=== PATIENT | female | born 1930 | race Caucasian/White ===

== ENCOUNTER 2017-05-05 14:22 | Inpatient (IN) | payer MEDICARE ==
[2017-05-05] MEDS ORDERED: NS 0.9% 1000 ML* 1,000 ML IV ONE (14:50)
[2017-05-05 16:11] LABS: ABS Basophils 0 10^3/ul (0-0.2); ABS Eosinophils 0.1 10^3/ul (0-0.6); ABS Lymphocytes 3.1 10^3/ul (1.0-4.8); ABS Monocytes 0.6 10^3/ul (0-0.8); ABS Nucleated RBC 0 10^3/ul; Eosinophil % 1.3 % (0-6); Hematocrit 32 % (35-47); Hemoglobin 10.8 g/dl (12.0-16.0); Mean Corpuscular HGB Conc 34 g/dl (31-36); Mean Corpuscular Hemoglobin 32 pg (27-31); Mean Corpuscular Volume 96 fL (80-97); Mean Platelet Volume 8 um3 (7.4-10.4); Nucleated Red Blood Cells % 0.1; Platelet Count 163 10^3/ul (150-450); Red Blood Count 3.33 10^6/ul (4.0-5.4); Red Cell Distribution Width 16 % (10.5-15); White Blood Count 8.9 10^3/ul (3.5-10.8)
[2017-05-05 16:23] LABS: EGFR Non-African American 59.5 (>60)
[2017-05-05 16:54] LABS: Urine Appearance Cloudy; Urine Blood Negative (Negative); Urine Color Yellow; Urine Ketones Negative (Negative); Urine Protein Negative (Negative); Urine Specific Gravity 1.006 (1.010-1.030); Urine Urobilinogen Negative (Negative)
--- NOTE | 2017-05-05 19:16 | RAD ---
Indication: Altered mental status. Comparison: No prior exams available on the [facility] for comparison. Technique: Noncontrast CT vertex of skull through foramen magnum. Report: Moderately severe prominence of the cerebral sulci and moderate prominence of the cerebellar fissures reflecting atrophy. Unremarkable ventricles and basal cisterns. Decreased density in the periventricular and subcortical white matter while non-specific is most likely due to chronic microangiopathy. Negative for willoughby matter white matter obscuration, intra or extra-axial hemorrhage, or mass effect. Unremarkable partially visualized orbital contents. No fracture or suspicious calvarial or skull base lesion evident. Indolent thickening of the inner table of the frontal bone noted. Clear visualized paranasal sinuses and mastoid air spaces. Unremarkable scalp. IMPRESSION: 1. No acute intracranial process evident. 2. Involutional change and stigmata of chronic small vessel ischemic disease.
[2017-05-05] MEDS ORDERED: Acetaminophen TAB* 325 MG PO PRN (19:19)
[2017-05-05] MEDS ORDERED: Ondansetron INJ* 2 MG/ML VIAL IV PRN (19:19)
[2017-05-05 19:46] LABS: ABS Basophils 0.1 10^3/ul (0-0.2); ABS Eosinophils 0.1 10^3/ul (0-0.6); ABS Monocytes 0.5 10^3/ul (0-0.8); ABS Neutrophils 3.9 10^3/ul (1.5-7.7); ABS Nucleated RBC 0 10^3/ul; Eosinophil % 1.2 % (0-6); Hematocrit 32 % (35-47); Hemoglobin 10.7 g/dl (12.0-16.0); Lymphocyte % 46.3 % (25-47); Mean Corpuscular HGB Conc 33 g/dl (31-36); Mean Corpuscular Hemoglobin 32 pg (27-31); Mean Corpuscular Volume 96 fL (80-97); Mean Platelet Volume 8 um3 (7.4-10.4); Nucleated Red Blood Cells % 0; Platelet Count 169 10^3/ul (150-450); Red Blood Count 3.34 10^6/ul (4.0-5.4); Red Cell Distribution Width 15 % (10.5-15); White Blood Count 8.6 10^3/ul (3.5-10.8)
--- NOTE | 2017-05-05 21:33 | ED ---
Holli Ramirez Gabriel, scribed for Adrian Barr MD on 05/05/17 at 1445 . GI/ HPI - HPI Summary HPI Summary: This patient is a 87 year old F BIBA to [facility] with a chief complaint of a possible UTI. Pt lives at home with her son and the visiting nurse reports that the patients urine was foul and dark. Pt seems to agitated and disowned her son in the ED. She seems confused and goes from being somewhat cooperative to not cooperative when asked questions about her condition. Pt asked the doctor to leave the room claiming he was not a real doctor and then became tearful. Hx of UTI and abx noncompliance. LEVEL 5 CAVEAT: HPI limited due to the patient being uncooperative. - History of Current Complaint Time Seen by Provider: 05/05/17 14:38 Stated Complaint: POSSIBLE UTI Hx Obtained From: Patient, Family/Manufacturing Design Engineer, EMS, Medical Records Hx From Patient Unobtainable Due To: Altered Mental Status Onset/Duration: Still Present Timing: Constant Severity: Moderate Current Severity: Moderate Pain Intensity: 0 Associated Signs and Symptoms: Positive: Negative - fever - Allergy/Home Medications Allergies/Adverse Reactions: Allergies Allergy/AdvReac Type Severity Reaction Status Date / Time No Known Allergies Allergy Verified 05/05/17 15:26 Home Medications: Home Medications Cholecalciferol TAB* [Vitamin D TAB*] 1,000 unit PO DAILY 05/05/17 [History Confirmed 05/05/17] Cyanocobalamin TAB* [Vitamin B12 TAB*] 500 mcg PO QAM 05/05/17 [History Confirmed 05/05/17] Escitalopram (NF) [Lexapro 5 mg (NF)] 5 mg PO QAM 05/05/17 [History Confirmed ] Levothyroxine TAB* [Synthroid TAB*] 100 mcg PO QAM 05/05/17 [History Confirmed 05/05/17] Mirtazapine TAB* [Remeron TAB*] 15 mg PO QPM 05/05/17 [History Confirmed ] Rivastigmine PATCH 4.6 MG(NF) [Exelon(NF)] 1 patch TRANSDERM DAILY 05/05/17 [ History Confirmed 05/05/17] Sulfamethox/Trimethoprim DS* [Bactrim DS 800/160 TAB*] 1 tab PO BID 05/05/17 [ History Confirmed 05/05/17] PMH/Surg Hx/FS Hx/Imm Hx History: Reports: Other Problems/Disorders - UTI Infectious Disease History: No Infectious Disease History: Denies: Traveled Outside the [place] in Last 30 Days - Social History Lives: With Family - Additional Comments History Additional Comments: LEVEL 5 CAVEAT: PMHx limited due to the patient being uncooperative. Review of Systems - ROS Summary Review of Systems Summary: LEVEL 5 CAVEAT: ROS limited due to the patient being uncooperative. Negative: Fever Negative: Slurred Speech All Other Systems Reviewed And Are Negative: No Physical Exam - Summary Physical Exam Summary: LEVEL 5 CAVEAT: PE limited due to the patient being uncooperative. Pt would not let any examination take place. Appearance: The patient is an elderly female. Skin: skin color reflects adequate perfusion. HEENT: The head is normocephalic and atraumatic. The conjunctivae are clear and without drainage. Nares are patent and without drainage. Mouth reveals moist mucous membranes. The external ears are intact. Neurological: Patient is alert and oriented. The patient has symmetrical motor strength in all four extremities. Cranial nerves are grossly intact. Psychiatric: The patient is confused and tearful Triage Information Reviewed: Yes Vital Signs On Initial Exam: Initial Vitals Temp Pulse Resp BP Pulse Ox 97.1 F 69 15 139/93 95 05/05/17 14:30 05/05/17 14:30 05/05/17 14:30 05/05/17 14:30 05/05/17 14:30 Vital Signs Reviewed: Yes Completion Of Physical Exam Limited Due To: Level 5 Diagnostics - Vital Signs Vital Signs Temp Pulse Resp BP Pulse Ox 05/05/17 14:30 97.1 F 69 15 139/93 95 - Laboratory Lab Results: Lab Results 05/05/17 05/05/17 05/05/17 Range/Units 15:33 15:59 15:59 WBC 8.9 (3.5-10.8) 10^3/ul RBC 3.33 L (4.0-5.4) 10^6/ul Hgb 10.8 L (12.0-16.0) g/dl Hct 32 L (35-47) % MCV 96 (80-97) fL MCH 32 H (27-31) pg MCHC 34 (31-36) g/dl RDW 16 H (10.5-15) % Plt Count 163 (150-450) 10^3/ul MPV 8 (7.4-10.4) um3 Neut % (Auto) 56.1 (38-83) % Lymph % (Auto) 35.0 (25-47) % Sully % (Auto) 7.1 H (0-7) % Eos % (Auto) 1.3 (0-6) % Baso % (Auto) 0.5 (0-2) % Absolute Neuts (auto) 5.0 (1.5-7.7) 10^3/ul Absolute Lymphs (auto) 3.1 (1.0-4.8) 10^3/ul Absolute Monos (auto) 0.6 (0-0.8) 10^3/ul Absolute Eos (auto) 0.1 (0-0.6) 10^3/ul Absolute Basos (auto) 0 (0-0.2) 10^3/ul Absolute Nucleated RBC 0 10^3/ul Nucleated RBC % 0.1 Sodium 141 (133-145) mmol/L Potassium 4.3 (3.5-5.0) mmol/L Chloride 109 (101-111) mmol/L Carbon Dioxide 28 (22-32) mmol/L Anion Gap 4 (2-11) mmol/L BUN 17 (6-24) mg/dL Creatinine 0.90 (0.51-0.95) mg/dL Est GFR ( Amer) 76.5 (>60) Est GFR (Non-Af Amer) 59.5 (>60) BUN/Creatinine Ratio 18.9 (8-20) Glucose 115 H (70-100) mg/dL Lactic Acid (0.5-2.0) mmol/L Calcium 9.2 (8.6-10.3) mg/dL Total Bilirubin 0.30 (0.2-1.0) mg/dL AST 15 (13-39) U/L ALT 5 L (7-52) U/L Alkaline Phosphatase 43 (34-104) U/L Ammonia (16-53) mol/L Troponin I 0.00 (<0.04) ng/mL Total Protein 6.6 (6.4-8.9) g/dL Albumin 3.4 (3.2-5.2) g/dL Globulin 3.2 (2-4) g/dL Albumin/Globulin Ratio 1.1 (1-3) Vitamin B12 457 (180-914) pg/mL TSH 0.03 L (0.34-5.60) mcIU/mL Free T4 1.41 H (0.61-1.12) ng/dL Thyroxine (T4) 9.68 (6.09-12.23) mcg/mL Free T3 2.80 (2.5-3.9) pg/mL Total T3 0.71 L (0.87-1.78) ng/mL Urine Color Yellow Urine Appearance Cloudy Urine pH 7.0 (5-9) Ur Specific [place] 1.006 L (1.010-1.030) Urine Protein Negative (Negative) Urine Ketones Negative (Negative) Urine Blood Negative (Negative) Urine Nitrate Negative (Negative) Urine Bilirubin Negative (Negative) Urine Urobilinogen Negative (Negative) Ur Leukocyte Esterase Negative (Negative) Urine Glucose Negative (Negative) 05/05/17 05/05/17 05/05/17 Range/Units 15:59 19:37 19:37 WBC 8.6 (3.5-10.8) 10^3/ul RBC 3.34 L (4.0-5.4) 10^6/ul Hgb 10.7 L (12.0-16.0) g/dl Hct 32 L (35-47) % MCV 96 (80-97) fL MCH 32 H (27-31) pg MCHC 33 (31-36) g/dl RDW 15 (10.5-15) % Plt Count 169 (150-450) 10^3/ul MPV 8 (7.4-10.4) um3 Neut % (Auto) 45.7 (38-83) % Lymph % (Auto) 46.3 (25-47) % Sully % (Auto) 6.1 (0-7) % Eos % (Auto) 1.2 (0-6) % Baso % (Auto) 0.7 (0-2) % Absolute Neuts (auto) 3.9 (1.5-7.7) 10^3/ul Absolute Lymphs (auto) 4.0 (1.0-4.8) 10^3/ul Absolute Monos (auto) 0.5 (0-0.8) 10^3/ul Absolute Eos (auto) 0.1 (0-0.6) 10^3/ul Absolute Basos (auto) 0.1 (0-0.2) 10^3/ul Absolute Nucleated RBC 0 10^3/ul Nucleated RBC % 0 Sodium (133-145) mmol/L Potassium (3.5-5.0) mmol/L Chloride (101-111) mmol/L Carbon Dioxide (22-32) mmol/L Anion Gap (2-11) mmol/L BUN 17 (6-24) mg/dL Creatinine (0.51-0.95) mg/dL Est GFR ( Amer) (>60) Est GFR (Non-Af Amer) (>60) BUN/Creatinine Ratio (8-20) Glucose (70-100) mg/dL Lactic Acid 1.7 (0.5-2.0) mmol/L Calcium (8.6-10.3) mg/dL Total Bilirubin (0.2-1.0) mg/dL AST (13-39) U/L ALT (7-52) U/L Alkaline Phosphatase (34-104) U/L Ammonia (16-53) mol/L Troponin I (<0.04) ng/mL Total Protein (6.4-8.9) g/dL Albumin (3.2-5.2) g/dL Globulin (2-4) g/dL Albumin/Globulin Ratio (1-3) Vitamin B12 (180-914) pg/mL TSH (0.34-5.60) mcIU/mL Free T4 (0.61-1.12) ng/dL Thyroxine (T4) (6.09-12.23) mcg/mL Free T3 (2.5-3.9) pg/mL Total T3 (0.87-1.78) ng/mL Urine Color Urine Appearance Urine pH (5-9) Ur Specific [place] (1.010-1.030) Urine Protein (Negative) Urine Ketones (Negative) Urine Blood (Negative) Urine Nitrate (Negative) Urine Bilirubin (Negative) Urine Urobilinogen (Negative) Ur Leukocyte Esterase (Negative) Urine Glucose (Negative) 05/05/17 Range/Units 19:37 WBC (3.5-10.8) 10^3/ul RBC (4.0-5.4) 10^6/ul Hgb (12.0-16.0) g/dl Hct (35-47) % MCV (80-97) fL MCH (27-31) pg MCHC (31-36) g/dl RDW (10.5-15) % Plt Count (150-450) 10^3/ul MPV (7.4-10.4) um3 Neut % (Auto) (38-83) % Lymph % (Auto) (25-47) % Sully % (Auto) (0-7) % Eos % (Auto) (0-6) % Baso % (Auto) (0-2) % Absolute Neuts (auto) (1.5-7.7) 10^3/ul Absolute Lymphs (auto) (1.0-4.8) 10^3/ul Absolute Monos (auto) (0-0.8) 10^3/ul Absolute Eos (auto) (0-0.6) 10^3/ul Absolute Basos (auto) (0-0.2) 10^3/ul Absolute Nucleated RBC 10^3/ul Nucleated RBC % Sodium (133-145) mmol/L Potassium (3.5-5.0) mmol/L Chloride (101-111) mmol/L Carbon Dioxide (22-32) mmol/L Anion Gap (2-11) mmol/L BUN (6-24) mg/dL Creatinine (0.51-0.95) mg/dL Est GFR ( Amer) (>60) Est GFR (Non-Af Amer) (>60) BUN/Creatinine Ratio (8-20) Glucose (70-100) mg/dL Lactic Acid (0.5-2.0) mmol/L Calcium (8.6-10.3) mg/dL Total Bilirubin (0.2-1.0) mg/dL AST (13-39) U/L ALT (7-52) U/L Alkaline Phosphatase (34-104) U/L Ammonia 38 (16-53) mol/L Troponin I (<0.04) ng/mL Total Protein (6.4-8.9) g/dL Albumin (3.2-5.2) g/dL Globulin (2-4) g/dL Albumin/Globulin Ratio (1-3) Vitamin B12 (180-914) pg/mL TSH (0.34-5.60) mcIU/mL Free T4 (0.61-1.12) ng/dL Thyroxine (T4) (6.09-12.23) mcg/mL Free T3 (2.5-3.9) pg/mL Total T3 (0.87-1.78) ng/mL Urine Color Urine Appearance Urine pH (5-9) Ur Specific [place] (1.010-1.030) Urine Protein (Negative) Urine Ketones (Negative) Urine Blood (Negative) Urine Nitrate (Negative) Urine Bilirubin (Negative) Urine Urobilinogen (Negative) Ur Leukocyte Esterase (Negative) Urine Glucose (Negative) Result Diagrams: 05/05/17 19:37 05/05/17 19:37 Lab Statement: Any lab studies that have been ordered have been reviewed, and results considered in the medical decision making process. - CT CT Head CT Interpretation Completed By: Radiologist - 1. No acute intracranial process evident. 2. Involutional change and stigmata of chronic small vessel ischemic disease. ED physician has reviewed this radiology report. - EKG 1723 Cardiac Rate: NL EKG Rhythm: Sinus Rhythm - at 74 BPM EKG Interpretation: baseline wander in inferior leads GIGU Course/Dx - Course Course Of Treatment: Ms. Mae presents with confusion and agitation. According to the son this is new and, therefore, represents an acute delirium. I could not find the source and have asked the hospitalist service to evaluate her. - Diagnoses Provider Diagnoses: Acute delirium - Physician Notifications Discussed Care Of Patient With: Mike Guy Time Discussed With Above Provider: 20:27 Instructed by Provider To: Admit As Inpatient Discharge - Discharge Plan Condition: Fair Disposition: ADMITTED TO [facility] The documentation as recorded by the Holli solomon Gabriel accurately reflects the service I personally performed and the decisions made by me, Adrian Barr MD.
[2017-05-05] MEDS: Heparin VIAL(*) 5000 UNITS/ML VIAL (FIVE THOUSAND) SUBCUT SCH (22:47)
--- NOTE | 2017-05-05 23:19 | HP ---
CC: Dr. Davis; Dr. Aldridge * HISTORY AND PHYSICAL: DATE OF ADMISSION: 05/05/17 PRIMARY CARE PROVIDER: Dr. Davis. ATTENDING PHYSICIAN WHILE IN THE HOSPITAL: Mike Guy MD * (report dictated by Nii Muhammad NP). CHIEF COMPLAINT: Altered mental status. HISTORY OF PRESENT ILLNESS: I would like to preface the report by saying that the patient has a moderate amount of underlying dementia. She really does not know why she is here today. She does not realize that she, according to the son , had been having hallucinations and was paranoid and not acting at her baseline. The family says that over the last couple of days, there has been issues with the patient being aggressive towards her son particularly at night. They do note that she gets more confused at night. There has been no reports of fevers or chills. There was concern for possible UTI so that is why they came into the hospital. She was evaluated. When I am asking her if she is having any complaints, she denies chest pain, denies having any cough, fevers, no vomiting or diarrhea. Family has not noticed any of these symptoms. They do note that she has been cheeking some of her pills at times. She has not been swallowing her hypothyroid medications and has not taking her B12 medication. There was concern though because she was a little more confused than her baseline, she was more paranoid, and the family brought her into the hospital today to be evaluated. PAST MEDICAL HISTORY: Significant for: 1. Hypothyroidism. 2. Dementia. 3. Breast cancer. PAST SURGICAL HISTORY: She had a laparoscopic cholecystectomy. HOME MEDICATIONS: Include: 1. Bactrim 1 tablet p.o. b.i.d. 2. B12 500 mcg daily. 3. Vitamin D 1000 units daily. 4. Exelon 1 patch transdermally daily. 5. Remeron 15 mg p.o. q.p.m. 6. Synthroid 100 mcg p.o. daily. 7. Lexapro 5 mg p.o. daily. ALLERGIES TO MEDICATIONS: Include no known drug allergies. FAMILY HISTORY: Her father of [place]. She thinks her mother is still alive in [place], but is not the case. SOCIAL HISTORY: She is a former smoker. She lives with her son, Leonor now. REVIEW OF SYSTEMS: There is no documented fever. Denied having any significant weight change. There was no double vision. There is no ear discharge. Denied having any rhinorrhea. There is no sore throat. No thyroid enlargement. Denied having any chest pain. There is orthopnea. There is no nocturnal dyspnea. There was no abdominal pain. There is no nausea, no vomiting, no dysuria, no frequency, no seizure, no loss of consciousness, no pruritus, and no skin ulcerations. Review of 14 systems completed, all others negative. PHYSICAL EXAMINATION GENERAL: Ms. Mae is an 87-year-old female patient. She is sitting in the ED stretcher. She does not appear to be in any acute distress. VITAL SIGNS: Blood pressure 153/75, pulse 67, respirations 16, O2 saturation 95 %, temperature 97.1. HEENT: Head, atraumatic, normocephalic. Eyes: EOMs intact. Sclerae anicteric and not pale. Throat: Oral mucosa appears to be moist. No oropharyngeal erythema. NECK: Supple. LUNGS: Clear to auscultation bilaterally. No wheezes, rales or rhonchi. HEART: Sounds S1, S2. Regular rate and rhythm. No murmurs, rubs or gallops. ABDOMEN: Soft, flat, nontender. Bowel sounds present. EXTREMITIES: Pulses were 2+ throughout. She had no peripheral edema noted. She is moving all 4 extremities with 5/5 strength. NEUROLOGIC: She is awake to herself only. She is confused to time and place. Speech is clear. Tongue is midline. No gross focal deficits. SKIN: Grossly intact. DIAGNOSTIC STUDIES/ LABORATORY DATA: WBC 8.6, RBC of 3.34, hemoglobin 10.7, hematocrit 32, platelet count 169. Sodium 141, potassium 4.3, chloride of 109, bicarbonate 28, BUN 17, creatinine 0.90. Glucose 115, lactic 1.7, calcium 9.2, total bilirubin 0.3. AST 15, ALT 5, alk phos 43, troponin 0. Albumin of 3.4. Urine was obtained and appeared to be negative. She had a CT of the brain, showed no acute intracranial process evident, involutional change, stigmata of chronic small vessel ischemic change. She had an EKG obtained today, which showed normal sinus rhythm, rate of 74. No ST elevations or T wave inversions. No previous EKG for comparison. Old medical records were reviewed. ASSESSMENT AND PLAN: Ms. Mae is an 87-year-old female patient coming into ED today with complaints of altered mental status, worsening confusion. We were asked to evaluate for admission. She will be admitted under observation status for: 1. Dementia with acute delirium. At this point, I do not see any precipitating factor. I do note her TSH is low. I have held her Synthroid at this point. We will check a free T3, free T4. I am going to get Neurology involved. I am looking for any other precipitating factors. I am checking ammonia level. I am also checking her B12 level. We will get neuro checks every 4 hours and we will continue to follow her, but this could be progression of her disease. We will continue her meds as prescribed and we will continue to monitor. 2. Hypothyroidism. Again, her TSH is low. I am holding her Synthroid. In dementia patient, this could be a culprit as to why she has been a little more paranoid and having hallucinations. We will monitor. 3. History of breast cancer. Follow with her primary. 4. DVT prophylaxis. She will be placed on heparin subcu. 5. Code status. Full code. Currently, the son will be in discussion with other children to discuss the code status. The son would like to speak to his sisters. 6. Fluid, electrolytes, and nutrition. She can have a regular diet. TIME SPENT: Time spent on admission was 60 minutes, greater than half the time was spent [id number] with the patient obtaining my history and physical, other half of the time spent going over the plan of care with the patient and implementing plan of care. I did discuss plan of care with my attending, Dr. Guy, he is in agreement. NII MUHAMMAD, BOUCHRA [id number]/CPS #: [id number] LEVI
[2017-05-06] MEDS: Heparin VIAL(*) 5000 UNITS/ML VIAL (FIVE THOUSAND) SUBCUT SCH ×3 (05:38→21:37)
[2017-05-06 06:23] LABS: ABS Basophils 0 10^3/ul (0-0.2); ABS Eosinophils 0.1 10^3/ul (0-0.6); ABS Lymphocytes 4.4 10^3/ul (1.0-4.8); ABS Monocytes 0.5 10^3/ul (0-0.8); ABS Neutrophils 2.9 10^3/ul (1.5-7.7); ABS Nucleated RBC 0 10^3/ul; Eosinophil % 1.9 % (0-6); Hematocrit 30 % (35-47); Hemoglobin 10.4 g/dl (12.0-16.0); Lymphocyte % 54.7 % (25-47); Mean Corpuscular HGB Conc 34 g/dl (31-36); Mean Corpuscular Hemoglobin 33 pg (27-31); Mean Corpuscular Volume 97 fL (80-97); Mean Platelet Volume 9 um3 (7.4-10.4); Nucleated Red Blood Cells % 0.1; Platelet Count 150 10^3/ul (150-450); Red Blood Count 3.14 10^6/ul (4.0-5.4); Red Cell Distribution Width 16 % (10.5-15)
[2017-05-06 07:00] LABS: EGFR Non-African American 53.9 (>60)
[2017-05-06] MEDS: Cyanocobalamin TAB* 500 MCG PO SCH (08:40)
[2017-05-06] MEDS: Citalopram TAB* 10 MG PO SCH (08:40)
[2017-05-06] MEDS ORDERED: Levothyroxine TAB* 100 MCG TAB PO SCH (09:00)
[2017-05-06] MEDS ORDERED: Rivastigmine PATCH 4.6 MG(NF) PATCH TRANSDERM SCH (09:00)
[2017-05-06] MEDS: OLANzapine TAB* 2.5 MG PO SCH ×3 (10:05→21:37)
--- NOTE | 2017-05-06 11:01 | PN ---
Subjective Date of Service: 05/06/17 Interval History: Patient seen and examined. Sitting in hallway with 1:1, bizarre behavior noted, very verbal, but making no sense most of the time. Difficut to redirect. No complaints, but unable to get complete ROS 2/2 condition. Objective Active Medications: Acetaminophen (Tylenol Tab*) 650 mg PO Q4H PRN PRN Reason: FEVER/PAIN Citalopram Hydrobromide (Celexa Tab*) 10 mg PO QAM [facility] PRN Reason: Protocol Last Admin: 05/06/17 08:40 Dose: 10 mg Cyanocobalamin (Vitamin B12 Tab*) 500 mcg PO QAM [facility] Last Admin: 05/06/17 08:40 Dose: 500 mcg Heparin Sodium (Porcine) (Heparin Vial(*)) 5,000 units SUBCUT Q8HR [facility] Last Admin: 05/06/17 05:38 Dose: 5,000 units Mirtazapine (Remeron Tab*) 15 mg PO QPM [facility] Olanzapine (Zyprexa Tab*) 2.5 mg PO Q6H [facility] Last Admin: 05/06/17 10:05 Dose: 2.5 mg Trazodone HCl (Desyrel Tab*) 50 mg PO BEDTIME [facility] Vital Signs - 8 hr 05/06/17 05/06/17 05/06/17 03:03 06:33 07:32 Temperature 98.0 F Pulse Rate 79 89 Respiratory 16 16 Rate Blood Pressure 130/64 157/55 (mmHg) O2 Sat by Pulse 99 99 92 Oximetry Oxygen Devices in Use Now: None Appearance: Alert, agitated at times, confused Ears/Nose/Mouth/Throat: NL Teeth, Lips, Gums, Mucous Membranes Moist Neck: Trachea Midline Respiratory: Symmetrical Chest Expansion and Respiratory Effort, Clear to Auscultation Cardiovascular: NL Sounds; No Murmurs; No JVD, RRR, No Edema Neurological: NL Gait, - - alert, confused Nutrition: Taking PO's Result Diagrams: 05/06/17 05:48 05/06/17 05:48 Additional Lab and Data: Lab Results 05/05/17 05/05/17 05/05/17 Range/Units 15:33 15:59 15:59 WBC 8.9 (3.5-10.8) 10^3/ul RBC 3.33 L (4.0-5.4) 10^6/ul Hgb 10.8 L (12.0-16.0) g/dl Hct 32 L (35-47) % MCV 96 (80-97) fL MCH 32 H (27-31) pg MCHC 34 (31-36) g/dl RDW 16 H (10.5-15) % Plt Count 163 (150-450) 10^3/ul MPV 8 (7.4-10.4) um3 Neut % (Auto) 56.1 (38-83) % Lymph % (Auto) 35.0 (25-47) % Gaston % (Auto) 7.1 H (0-7) % Eos % (Auto) 1.3 (0-6) % Baso % (Auto) 0.5 (0-2) % Absolute Neuts (auto) 5.0 (1.5-7.7) 10^3/ul Absolute Lymphs (auto) 3.1 (1.0-4.8) 10^3/ul Absolute Monos (auto) 0.6 (0-0.8) 10^3/ul Absolute Eos (auto) 0.1 (0-0.6) 10^3/ul Absolute Basos (auto) 0 (0-0.2) 10^3/ul Absolute Nucleated RBC 0 10^3/ul Nucleated RBC % 0.1 Sodium 141 (133-145) mmol/L Potassium 4.3 (3.5-5.0) mmol/L Chloride 109 (101-111) mmol/L Carbon Dioxide 28 (22-32) mmol/L Anion Gap 4 (2-11) mmol/L BUN 17 (6-24) mg/dL Creatinine 0.90 (0.51-0.95) mg/dL Est GFR ( Amer) 76.5 (>60) Est GFR (Non-Af Amer) 59.5 (>60) BUN/Creatinine Ratio 18.9 (8-20) Glucose 115 H (70-100) mg/dL Lactic Acid (0.5-2.0) mmol/L Calcium 9.2 (8.6-10.3) mg/dL Total Bilirubin 0.30 (0.2-1.0) mg/dL AST 15 (13-39) U/L ALT 5 L (7-52) U/L Alkaline Phosphatase 43 (34-104) U/L Ammonia (16-53) mol/L Troponin I 0.00 (<0.04) ng/mL Total Protein 6.6 (6.4-8.9) g/dL Albumin 3.4 (3.2-5.2) g/dL Globulin 3.2 (2-4) g/dL Albumin/Globulin Ratio 1.1 (1-3) Vitamin B12 457 (180-914) pg/mL TSH 0.03 L (0.34-5.60) mcIU/mL Free T4 1.41 H (0.61-1.12) ng/dL Thyroxine (T4) 9.68 (6.09-12.23) mcg/mL Free T3 2.80 (2.5-3.9) pg/mL Total T3 0.71 L (0.87-1.78) ng/mL Urine Color Yellow Urine Appearance Cloudy Urine pH 7.0 (5-9) Ur Specific [place] 1.006 L (1.010-1.030) Urine Protein Negative (Negative) Urine Ketones Negative (Negative) Urine Blood Negative (Negative) Urine Nitrate Negative (Negative) Urine Bilirubin Negative (Negative) Urine Urobilinogen Negative (Negative) Ur Leukocyte Esterase Negative (Negative) Urine Glucose Negative (Negative) 05/05/17 05/05/17 05/05/17 Range/Units 15:59 19:37 19:37 WBC 8.6 (3.5-10.8) 10^3/ul RBC 3.34 L (4.0-5.4) 10^6/ul Hgb 10.7 L (12.0-16.0) g/dl Hct 32 L (35-47) % MCV 96 (80-97) fL MCH 32 H (27-31) pg MCHC 33 (31-36) g/dl RDW 15 (10.5-15) % Plt Count 169 (150-450) 10^3/ul MPV 8 (7.4-10.4) um3 Neut % (Auto) 45.7 (38-83) % Lymph % (Auto) 46.3 (25-47) % Gaston % (Auto) 6.1 (0-7) % Eos % (Auto) 1.2 (0-6) % Baso % (Auto) 0.7 (0-2) % Absolute Neuts (auto) 3.9 (1.5-7.7) 10^3/ul Absolute Lymphs (auto) 4.0 (1.0-4.8) 10^3/ul Absolute Monos (auto) 0.5 (0-0.8) 10^3/ul Absolute Eos (auto) 0.1 (0-0.6) 10^3/ul Absolute Basos (auto) 0.1 (0-0.2) 10^3/ul Absolute Nucleated RBC 0 10^3/ul Nucleated RBC % 0 Sodium (133-145) mmol/L Potassium (3.5-5.0) mmol/L Chloride (101-111) mmol/L Carbon Dioxide (22-32) mmol/L Anion Gap (2-11) mmol/L BUN 17 (6-24) mg/dL Creatinine (0.51-0.95) mg/dL Est GFR ( Amer) (>60) Est GFR (Non-Af Amer) (>60) BUN/Creatinine Ratio (8-20) Glucose (70-100) mg/dL Lactic Acid 1.7 (0.5-2.0) mmol/L Calcium (8.6-10.3) mg/dL Total Bilirubin (0.2-1.0) mg/dL AST (13-39) U/L ALT (7-52) U/L Alkaline Phosphatase (34-104) U/L Ammonia (16-53) mol/L Troponin I (<0.04) ng/mL Total Protein (6.4-8.9) g/dL Albumin (3.2-5.2) g/dL Globulin (2-4) g/dL Albumin/Globulin Ratio (1-3) Vitamin B12 (180-914) pg/mL TSH (0.34-5.60) mcIU/mL Free T4 (0.61-1.12) ng/dL Thyroxine (T4) (6.09-12.23) mcg/mL Free T3 (2.5-3.9) pg/mL Total T3 (0.87-1.78) ng/mL Urine Color Urine Appearance Urine pH (5-9) Ur Specific [place] (1.010-1.030) Urine Protein (Negative) Urine Ketones (Negative) Urine Blood (Negative) Urine Nitrate (Negative) Urine Bilirubin (Negative) Urine Urobilinogen (Negative) Ur Leukocyte Esterase (Negative) Urine Glucose (Negative) 05/05/17 Range/Units 19:37 WBC (3.5-10.8) 10^3/ul RBC (4.0-5.4) 10^6/ul Hgb (12.0-16.0) g/dl Hct (35-47) % MCV (80-97) fL MCH (27-31) pg MCHC (31-36) g/dl RDW (10.5-15) % Plt Count (150-450) 10^3/ul MPV (7.4-10.4) um3 Neut % (Auto) (38-83) % Lymph % (Auto) (25-47) % Gaston % (Auto) (0-7) % Eos % (Auto) (0-6) % Baso % (Auto) (0-2) % Absolute Neuts (auto) (1.5-7.7) 10^3/ul Absolute Lymphs (auto) (1.0-4.8) 10^3/ul Absolute Monos (auto) (0-0.8) 10^3/ul Absolute Eos (auto) (0-0.6) 10^3/ul Absolute Basos (auto) (0-0.2) 10^3/ul Absolute Nucleated RBC 10^3/ul Nucleated RBC % Sodium (133-145) mmol/L Potassium (3.5-5.0) mmol/L Chloride (101-111) mmol/L Carbon Dioxide (22-32) mmol/L Anion Gap (2-11) mmol/L BUN (6-24) mg/dL Creatinine (0.51-0.95) mg/dL Est GFR ( Amer) (>60) Est GFR (Non-Af Amer) (>60) BUN/Creatinine Ratio (8-20) Glucose (70-100) mg/dL Lactic Acid (0.5-2.0) mmol/L Calcium (8.6-10.3) mg/dL Total Bilirubin (0.2-1.0) mg/dL AST (13-39) U/L ALT (7-52) U/L Alkaline Phosphatase (34-104) U/L Ammonia 38 (16-53) mol/L Troponin I (<0.04) ng/mL Total Protein (6.4-8.9) g/dL Albumin (3.2-5.2) g/dL Globulin (2-4) g/dL Albumin/Globulin Ratio (1-3) Vitamin B12 (180-914) pg/mL TSH (0.34-5.60) mcIU/mL Free T4 (0.61-1.12) ng/dL Thyroxine (T4) (6.09-12.23) mcg/mL Free T3 (2.5-3.9) pg/mL Total T3 (0.87-1.78) ng/mL Urine Color Urine Appearance Urine pH (5-9) Ur Specific [place] (1.010-1.030) Urine Protein (Negative) Urine Ketones (Negative) Urine Blood (Negative) Urine Nitrate (Negative) Urine Bilirubin (Negative) Urine Urobilinogen (Negative) Ur Leukocyte Esterase (Negative) Urine Glucose (Negative) Diagnostic Imaging: Patient Name: GAMA MANZO Medical Record#: [id number] Ordering Physician: Adrian Barr MD Acct.#: [id number] : 1930 Age: 87 Sex: F Location: EMERGENCY DEPARTMENT Exam Date: 05/05/171721 ADM Status: REG ER Order Information: CT BRAIN WO Accession Number: [id number] CPT: 54042 Indication: Altered mental status. Comparison: No prior exams available on the [facility] [place] for comparison. Technique: Noncontrast CT vertex of skull through foramen magnum. Report: Moderately severe prominence of the cerebral sulci and moderate prominence of the cerebellar fissures reflecting atrophy. Unremarkable ventricles and basal cisterns. 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 Negative for [place]oughby matter white matter obscuration, intra or extra-axial hemorrhage, or mass effect. Unremarkable partially visualized orbital contents. No fracture or suspicious calvarial or skull base lesion evident. Indolent thickening of the inner table of the frontal bone noted. Clear visualized paranasal sinuses and mastoid air spaces. Unremarkable scalp. IMPRESSION: 1. No acute intracranial process evident. 2. Involutional change and stigmata of chronic small vessel ischemic disease. <Electronically signed by Carroll Adame MD in OV> 05/05/171912 Dictated By: Carroll Adame MD Dictated Date/Time: 05/05/171912 Transcribed Date/Time: 05/05/171908 Copy to: Assess/Plan/Problems-Billing Assessment: This is a very confused 87 year old female with history of dementia with more severe features last 48 hours and no clear etiology. - Patient Problems (1) Altered mental status Code(s): R41.82 - ALTERED MENTAL STATUS, UNSPECIFIED SNOMED Code(s): 007589888 Comment: - Baseline dementia, but now with bizarre behavior - CT head negative for any acute pathology - Does not appear to have infectious origin - Trial low dose zyprexa, trazodone QHS and continue 1:1 - May consult psych for symptom management if no improvement by tomorrow (2) Hypothyroid Code(s): E03.9 - HYPOTHYROIDISM, UNSPECIFIED SNOMED Code(s): 04698132 Comment: - TSH 0.03, will continue to old synthroid - may be contributing to condition - Recheck TSH in a few days (3) Full code status Code(s): Z78.9 - OTHER SPECIFIED HEALTH STATUS SNOMED Code(s): 166651088 Status and Disposition: Remain inpatient for symptom management. Will discuss with family.
[2017-05-06] MEDS ORDERED: Mirtazapine TAB* 15 MG PO SCH (18:00)
--- NOTE | 2017-05-06 20:29 | RAD ---
Indication: Dementia. Mental status change. Comparison: CT brain of one day prior. Technique: Texere Camp[place] 1.5 Tiffanie [id number] with GEM suite. MRI brain without contrast. Report: Diffusion series is negative for acute or subacute ischemia. Susceptibility series is negative for stigmata of hemosiderin deposition to indicate previous hemorrhage. Moderate prominence of the cerebral sulci reflecting volume loss. Unremarkable ventricles and basal cisterns. Increased T2 signal in the periventricular and subcortical white matter without mass effect most consistent with chronic small vessel ischemic disease. No intra or extra-axial fluid collection evident. Unremarkable orbital contents. Preserved major intracranial flow-voids. Indolent thickening of the inner table of the frontal bone. No suspicious calvarial or skull base fractures evident. Clear paranasal sinuses and mastoid air spaces. Unremarkable scalp. IMPRESSION: Involutional change and stigmata of chronic small vessel ischemic disease. No evidence for acute or subacute ischemia or other acute intracranial process.
[2017-05-06] MEDS ORDERED: traZODone TAB* 50 MG TAB PO SCH (21:00)
--- NOTE | 2017-05-06 21:45 | CONS ---
NEUROLOGY CONSULTATION REPORT: DATE OF CONSULT: 05/06/17 REQUESTING PROVIDER: Nii Muhammad NP REASON FOR CONSULT: Dementia. HISTORY OF PRESENT ILLNESS: Luzmaria Mae is an 87-year-old woman with a history of memory difficulties over the past few years as well as hypothyroidism and past history of breast cancer who was brought to the hospital last night by her son when she had become more irritable and paranoid at home. Over the last couple of days, she has been accusing him of being "the bad Leonor" and has been confrontational with his . She has been accusing them of kidnapping her and has had other paranoid ideas about them. When she has behaved this way in the past, she has had urinary tract infection and so they came to the hospital for that evaluation. They have also been looking into having her placed in a memory care unit and she was admitted to the hospital because of this change in her behavior. Her urine was noted to show no signs for infection, but her TSH was suppressed and her free T4 elevated and so her levothyroxine has been held. After my evaluation of the patient this afternoon, I spoke with the son to get an idea of her baseline and in particular her baseline speech pattern. I noticed on my evaluation that she is rambling and the thoughts that she is stringing together do not make a lot of sense though her speech is fluent. Her son noticed the same thing today and says that this is worse than he has ever seen her before in the past. I was not able to have a coherent conversation with her and spoke also with the [id number], who said that the last time they were able to have a conversation with her was about a week ago. At that time, she was able to have somewhat meaningful conversation about aging apparently. Neurology consultation was requested in the evaluation of dementia and these recent mental status changes. PAST MEDICAL HISTORY: 1. Hypothyroidism. 2. Dementia. 3. Recurrent UTIs. 4. Breast cancer. PAST SURGICAL HISTORY: Laparoscopic cholecystectomy. HOME MEDICATIONS: 1. Bactrim is listed on her home medications, but her son reports that she finished that around April 18. 2. B12 500 mcg daily. 3. Vitamin D 1000 units daily. 4. Exelon patch daily. 5. Remeron 15 mg at bedtime. 6. Synthroid 100 mcg daily. 7. Lexapro 5 mg daily. ALLERGIES: No known drug allergies. FAMILY HISTORY: Her mother in a car accident many years ago. Her father of heart attack. There is no known history of dementia in the family. SOCIAL HISTORY: She is a former smoker. She currently lives with her son, Leonor, and moved in March. Prior to that, he says that she lived for "a little while" with his sister and before that was living in her own home with another one of his sisters. REVIEW OF SYSTEMS: She otherwise denies any vision changes, chest pain, abdominal pain, weakness, numbness or tingling in her extremities. She has had no balance difficulties and no falls at home. PHYSICAL EXAM: Vital Signs: Temperature 98.9, blood pressure 106/62, heart rate 75, oxygen saturation 98% on room air. On general examination, she is awake and alert. She is seated in the chair next to her bed. She has her lunch tray next to her and ate her pie, but did not eat much of anything else. Her heart is in a regular rate and rhythm. Lungs: Clear to auscultation bilaterally. There were no carotid bruits auscultated. She has no lower extremity edema and her skin is intact. She does have a band-aid on one of the fingers of her left hand. On neurologic examination, she stated that she was 89 years old. She was not able to name the city, but did know that she was in the state [facility]. She was not able to name the type of facility she was in even when presented with a list of choices. She appeared to have a fluent aphasia. She was able to describe the cookie theft picture though commented that the girl in the picture had broken her neck. She was able to name most objects on the stroke cards, but was not able to name a cactus and was somewhat able to describe the glove, but was not able to come up with the word. She was able to name hammock without difficulty, however. She made just a few errors when reading the phrases on the stroke card and there is no dysarthria. When asked to spell the word "world" backwards, she stated that she had to have something on her palate in order to be able to do so. When asked to perform serial 7s, she motioned as though she wanted to lie back and said that she needed to be reclined in order to do that and began rambling about something off topic. She was not able to ultimately perform serial 7s. On cranial nerve exam, pupils were equal, round, and reactive from 3 to 2 mm bilaterally. She was able to follow the examiner's face in all directions with some limitation of up gaze. Meadows were full to confrontation with no extinction to double simultaneous stimulation. Facial sensation and musculature is full and symmetric. Hearing is intact to voice. The palate elevates symmetrically and the tongue is midline. She has some difficulty cooperating with formal strength testing, but there is no clear focal weakness in all extremities or at least the antigravity. She was not able to supinate the left arm as much as the right, but there was no clear pronator drift. Sensation was intact to light touch and pinprick in the upper and lower extremities. Reflexes were 2+ in the upper extremities and at the knees with absent ankle jerks and mute toes. [id number] is intact without ataxia. She ambulates with a narrow based gait, which is steady. Glabellar, palmomental and grasp reflexes absent. DIAGNOSTIC STUDIES/LAB DATA: Her CMP was overall unremarkable aside from a nonfasting glucose of 115. Her TSH was low at 0.03 and free T4 elevated at 1.41. Total T3 was 0.71. Her CBC shows hematocrit of 30, down from 32 yesterday and a stable hemoglobin of 10.4 with normal platelet count and white blood cell count. Her MCH is elevated at 33 and RDW of 16. Urinalysis was negative for infection. Her brain CT was personally reviewed and shows diffuse atrophy, but perhaps more prominent in the frontal and temporal regions. In addition, there appeared to be perhaps some old areas of infarction in the right insular region and also evidence of chronic small vessel disease. IMPRESSION: Luzmaria Mae is an 87-year-old woman with dementia who came in with increasing paranoia and somewhat aggressive behavior at home. She does not have any infectious etiology that has been elucidated at this point though her TSH is suppressed perhaps suggesting that she is overmedicated with her levothyroxine and as a result this is being held currently. A relative state of hyperthyroidism could contribute to a delirium on top of a dementia. However , I also note that she seems to have a prominent fluent aphasia, which can happen in dementia, but it is little unusual, so I would like to evaluation further with MRI of the brain if she is able to cooperate. I do not want her medicated for the MRI scan, but discussed with her what to expect and she indicates that she is not claustrophobic and hopefully she will be able to tolerate the exam. If the MRI scan is negative for any acute change such as a small stroke, which might be causing a fluent aphasia, I think this is most likely related to her dementia and we will proceed with giving her supportive care as such. Thank you for this consultation. [id number]/[id number] #: [id number] LEVI
[2017-05-07] MEDS: OLANzapine TAB* 2.5 MG PO SCH ×2 (03:50→09:18)
[2017-05-07] MEDS: Heparin VIAL(*) 5000 UNITS/ML VIAL (FIVE THOUSAND) SUBCUT SCH ×3 (05:31→23:53)
[2017-05-07] MEDS: Citalopram TAB* 10 MG PO SCH (09:19)
[2017-05-07] MEDS: Cyanocobalamin TAB* 500 MCG PO SCH (09:19)
[2017-05-07] MEDS ORDERED: QUEtiapine TAB* 25 MG PO PRN (10:31)
--- NOTE | 2017-05-07 10:42 | PN ---
Subjective Date of Service: 05/07/17 Interval History: Patient seen and examined. Very manic and talkative. Son and Dr. Aldridge at bedside. Per RN, patient did not sleep last night and zyprexa PRN not working. Does not appear distressed, no pain, no complaints. Remains acutely confused. Objective Active Medications: Acetaminophen (Tylenol Tab*) 650 mg PO Q4H PRN PRN Reason: FEVER/PAIN Citalopram Hydrobromide (Celexa Tab*) 10 mg PO QAM [facility] PRN Reason: Protocol Last Admin: 05/07/17 09:19 Dose: 10 mg Cyanocobalamin (Vitamin B12 Tab*) 500 mcg PO QAM [facility] Last Admin: 05/07/17 09:19 Dose: 500 mcg Heparin Sodium (Porcine) (Heparin Vial(*)) 5,000 units SUBCUT Q8HR [facility] Last Admin: 05/07/17 05:31 Dose: 5,000 units Mirtazapine (Remeron Tab*) 30 mg PO BEDTIME [facility] Quetiapine Fumarate (Seroquel Tab*) 25 mg PO BEDTIME PRN PRN Reason: AGITATION Vital Signs - 8 hr 05/07/17 05/07/17 05/07/17 03:19 07:39 08:00 Temperature 97.3 F 98.1 F Pulse Rate 77 95 Respiratory 18 18 18 Rate Blood Pressure 143/70 107/83 (mmHg) O2 Sat by Pulse 96 93 Oximetry Oxygen Devices in Use Now: None Appearance: Alert, talkative, confused Eyes: PERRLA Ears/Nose/Mouth/Throat: NL Teeth, Lips, Gums Neck: Trachea Midline Respiratory: Symmetrical Chest Expansion and Respiratory Effort, Clear to Auscultation Cardiovascular: NL Sounds; No Murmurs; No JVD Abdominal: NL Sounds; No Tenderness; No Distention Extremities: No Edema Neurological: NL Gait, NL Muscle Strength and Tone Nutrition: Taking PO's Result Diagrams: 05/06/17 05:48 05/06/17 05:48 Additional Lab and Data: Lab Results 05/05/17 05/05/17 05/05/17 Range/Units 15:33 15:59 15:59 WBC 8.9 (3.5-10.8) 10^3/ul RBC 3.33 L (4.0-5.4) 10^6/ul Hgb 10.8 L (12.0-16.0) g/dl Hct 32 L (35-47) % MCV 96 (80-97) fL MCH 32 H (27-31) pg MCHC 34 (31-36) g/dl RDW 16 H (10.5-15) % Plt Count 163 (150-450) 10^3/ul MPV 8 (7.4-10.4) um3 Neut % (Auto) 56.1 (38-83) % Lymph % (Auto) 35.0 (25-47) % [place] % (Auto) 7.1 H (0-7) % Eos % (Auto) 1.3 (0-6) % Baso % (Auto) 0.5 (0-2) % Absolute Neuts (auto) 5.0 (1.5-7.7) 10^3/ul Absolute Lymphs (auto) 3.1 (1.0-4.8) 10^3/ul Absolute Monos (auto) 0.6 (0-0.8) 10^3/ul Absolute Eos (auto) 0.1 (0-0.6) 10^3/ul Absolute Basos (auto) 0 (0-0.2) 10^3/ul Absolute Nucleated RBC 0 10^3/ul Nucleated RBC % 0.1 Sodium 141 (133-145) mmol/L Potassium 4.3 (3.5-5.0) mmol/L Chloride 109 (101-111) mmol/L Carbon Dioxide 28 (22-32) mmol/L Anion Gap 4 (2-11) mmol/L BUN 17 (6-24) mg/dL Creatinine 0.90 (0.51-0.95) mg/dL Est GFR ( Amer) 76.5 (>60) Est GFR (Non-Af Amer) 59.5 (>60) BUN/Creatinine Ratio 18.9 (8-20) Glucose 115 H (70-100) mg/dL Lactic Acid (0.5-2.0) mmol/L Calcium 9.2 (8.6-10.3) mg/dL Total Bilirubin 0.30 (0.2-1.0) mg/dL AST 15 (13-39) U/L ALT 5 L (7-52) U/L Alkaline Phosphatase 43 (34-104) U/L Ammonia (16-53) mol/L Troponin I 0.00 (<0.04) ng/mL Total Protein 6.6 (6.4-8.9) g/dL Albumin 3.4 (3.2-5.2) g/dL Globulin 3.2 (2-4) g/dL Albumin/Globulin Ratio 1.1 (1-3) Vitamin B12 457 (180-914) pg/mL TSH 0.03 L (0.34-5.60) mcIU/mL Free T4 1.41 H (0.61-1.12) ng/dL Thyroxine (T4) 9.68 (6.09-12.23) mcg/mL Free T3 2.80 (2.5-3.9) pg/mL Total T3 0.71 L (0.87-1.78) ng/mL Urine Color Yellow Urine Appearance Cloudy Urine pH 7.0 (5-9) Ur Specific [place] 1.006 L (1.010-1.030) Urine Protein Negative (Negative) Urine Ketones Negative (Negative) Urine Blood Negative (Negative) Urine Nitrate Negative (Negative) Urine Bilirubin Negative (Negative) Urine Urobilinogen Negative (Negative) Ur Leukocyte Esterase Negative (Negative) Urine Glucose Negative (Negative) 05/05/17 05/05/17 05/05/17 Range/Units 15:59 19:37 19:37 WBC 8.6 (3.5-10.8) 10^3/ul RBC 3.34 L (4.0-5.4) 10^6/ul Hgb 10.7 L (12.0-16.0) g/dl Hct 32 L (35-47) % MCV 96 (80-97) fL MCH 32 H (27-31) pg MCHC 33 (31-36) g/dl RDW 15 (10.5-15) % Plt Count 169 (150-450) 10^3/ul MPV 8 (7.4-10.4) um3 Neut % (Auto) 45.7 (38-83) % Lymph % (Auto) 46.3 (25-47) % [place] % (Auto) 6.1 (0-7) % Eos % (Auto) 1.2 (0-6) % Baso % (Auto) 0.7 (0-2) % Absolute Neuts (auto) 3.9 (1.5-7.7) 10^3/ul Absolute Lymphs (auto) 4.0 (1.0-4.8) 10^3/ul Absolute Monos (auto) 0.5 (0-0.8) 10^3/ul Absolute Eos (auto) 0.1 (0-0.6) 10^3/ul Absolute Basos (auto) 0.1 (0-0.2) 10^3/ul Absolute Nucleated RBC 0 10^3/ul Nucleated RBC % 0 Sodium (133-145) mmol/L Potassium (3.5-5.0) mmol/L Chloride (101-111) mmol/L Carbon Dioxide (22-32) mmol/L Anion Gap (2-11) mmol/L BUN 17 (6-24) mg/dL Creatinine (0.51-0.95) mg/dL Est GFR ( Amer) (>60) Est GFR (Non-Af Amer) (>60) BUN/Creatinine Ratio (8-20) Glucose (70-100) mg/dL Lactic Acid 1.7 (0.5-2.0) mmol/L Calcium (8.6-10.3) mg/dL Total Bilirubin (0.2-1.0) mg/dL AST (13-39) U/L ALT (7-52) U/L Alkaline Phosphatase (34-104) U/L Ammonia (16-53) mol/L Troponin I (<0.04) ng/mL Total Protein (6.4-8.9) g/dL Albumin (3.2-5.2) g/dL Globulin (2-4) g/dL Albumin/Globulin Ratio (1-3) Vitamin B12 (180-914) pg/mL TSH (0.34-5.60) mcIU/mL Free T4 (0.61-1.12) ng/dL Thyroxine (T4) (6.09-12.23) mcg/mL Free T3 (2.5-3.9) pg/mL Total T3 (0.87-1.78) ng/mL Urine Color Urine Appearance Urine pH (5-9) Ur Specific [place] (1.010-1.030) Urine Protein (Negative) Urine Ketones (Negative) Urine Blood (Negative) Urine Nitrate (Negative) Urine Bilirubin (Negative) Urine Urobilinogen (Negative) Ur Leukocyte Esterase (Negative) Urine Glucose (Negative) 05/05/17 Range/Units 19:37 WBC (3.5-10.8) 10^3/ul RBC (4.0-5.4) 10^6/ul Hgb (12.0-16.0) g/dl Hct (35-47) % MCV (80-97) fL MCH (27-31) pg MCHC (31-36) g/dl RDW (10.5-15) % Plt Count (150-450) 10^3/ul MPV (7.4-10.4) um3 Neut % (Auto) (38-83) % Lymph % (Auto) (25-47) % [place] % (Auto) (0-7) % Eos % (Auto) (0-6) % Baso % (Auto) (0-2) % Absolute Neuts (auto) (1.5-7.7) 10^3/ul Absolute Lymphs (auto) (1.0-4.8) 10^3/ul Absolute Monos (auto) (0-0.8) 10^3/ul Absolute Eos (auto) (0-0.6) 10^3/ul Absolute Basos (auto) (0-0.2) 10^3/ul Absolute Nucleated RBC 10^3/ul Nucleated RBC % Sodium (133-145) mmol/L Potassium (3.5-5.0) mmol/L Chloride (101-111) mmol/L Carbon Dioxide (22-32) mmol/L Anion Gap (2-11) mmol/L BUN (6-24) mg/dL Creatinine (0.51-0.95) mg/dL Est GFR ( Amer) (>60) Est GFR (Non-Af Amer) (>60) BUN/Creatinine Ratio (8-20) Glucose (70-100) mg/dL Lactic Acid (0.5-2.0) mmol/L Calcium (8.6-10.3) mg/dL Total Bilirubin (0.2-1.0) mg/dL AST (13-39) U/L ALT (7-52) U/L Alkaline Phosphatase (34-104) U/L Ammonia 38 (16-53) mol/L Troponin I (<0.04) ng/mL Total Protein (6.4-8.9) g/dL Albumin (3.2-5.2) g/dL Globulin (2-4) g/dL Albumin/Globulin Ratio (1-3) Vitamin B12 (180-914) pg/mL TSH (0.34-5.60) mcIU/mL Free T4 (0.61-1.12) ng/dL Thyroxine (T4) (6.09-12.23) mcg/mL Free T3 (2.5-3.9) pg/mL Total T3 (0.87-1.78) ng/mL Urine Color Urine Appearance Urine pH (5-9) Ur Specific [place] (1.010-1.030) Urine Protein (Negative) Urine Ketones (Negative) Urine Blood (Negative) Urine Nitrate (Negative) Urine Bilirubin (Negative) Urine Urobilinogen (Negative) Ur Leukocyte Esterase (Negative) Urine Glucose (Negative) Diagnostic Imaging: MRI BRAIN Patient Name: GAMA MANZO Medical Record#: [id number] Ordering Physician: Alissa Aldridge MD Acct.#: [id number] : 1930 Age: 87 Sex: F Location: [address] [place] [address] MEDICAL Exam Date: 05/06/17 1601 ADM Status: ADM Nay Order Information: MRI BRAIN W/O Accession Number: [id number] CPT: 23241 Indication: Dementia. Mental status change. Comparison: CT brain of one day prior. Technique: [employer] 1.5 Tiffanie [id number] with GEM suite. MRI brain without contrast. Report: Diffusion series is negative for acute or subacute ischemia. Susceptibility series is negative for stigmata of hemosiderin deposition to indicate previous hemorrhage. Moderate prominence of the cerebral sulci reflecting volume loss. Unremarkable ventricles and basal cisterns. Increased T2 signal in the periventricular and subcortical white matter without mass effect most consistent with chronic small vessel ischemic disease. No intra or extra-axial fluid collection evident. Unremarkable orbital contents. Preserved major intracranial flow-voids. Indolent thickening of the inner table of the frontal bone. No suspicious calvarial or skull base fractures evident. Clear paranasal sinuses and mastoid air spaces. Unremarkable scalp. IMPRESSION: Involutional change and stigmata of chronic small vessel ischemic disease. No evidence for acute or subacute ischemia or other acute intracranial process. <Electronically signed by Carroll Adame MD in [place]> 05/06/172024 Dictated By: Carroll Adame MD Dictated Date/Time: 05/06/172024 Transcribed Date/Time: 05/06/172020 Copy to: HEAD CT Patient Name: GAMA MANZO Medical Record#: [id number] Ordering Physician: Adrian Barr MD Acct.#: [id number] : 1930 Age: 87 Sex: F Location: EMERGENCY DEPARTMENT Exam Date: 05/05/171721 ADM Status: REG ER Order Information: CT BRAIN WO Accession Number: [id number] CPT: 01628 Indication: Altered mental status. Comparison: No prior exams available on the [facility] PACS for comparison. Technique: Noncontrast CT vertex of skull through foramen magnum. Report: Moderately severe prominence of the cerebral sulci and moderate prominence of the cerebellar fissures reflecting atrophy. Unremarkable ventricles and basal cisterns. 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 Negative for willoughby matter white matter obscuration, intra or extra-axial hemorrhage, or mass effect. Unremarkable partially visualized orbital contents. No fracture or suspicious calvarial or skull base lesion evident. Indolent thickening of the inner table of the frontal bone noted. Clear visualized paranasal sinuses and mastoid air spaces. Unremarkable scalp. IMPRESSION: 1. No acute intracranial process evident. 2. Involutional change and stigmata of chronic small vessel ischemic disease. <Electronically signed by Carroll Adame MD in [place]> 05/05/171912 Dictated By: Carroll Adame MD Dictated Date/Time: 05/05/171912 Transcribed Date/Time: 05/05/171908 Copy to: Assess/Plan/Problems-Billing Assessment: This is a very confused 87 year old female with history of dementia with more severe features last 48 hours and no clear etiology. - Patient Problems (1) Altered mental status Code(s): R41.82 - ALTERED MENTAL STATUS, UNSPECIFIED SNOMED Code(s): 259624003 Comment: - Baseline dementia, but now with bizarre behavior and not sleeping - CT head negative for any acute pathology - MRI with no changes - Does not appear to have infectious origin - Change to seroquel tonight PRN, DC zyprexa and increase remeron dose - Dr. Aldridge following (2) Hypothyroid Code(s): E03.9 - HYPOTHYROIDISM, UNSPECIFIED SNOMED Code(s): 22052070 Comment: - TSH 0.03, will continue to hold synthroid - overmedication with synthroid may have been contributing factor - Recheck TSH in a week (3) Full code status Code(s): Z78.9 - OTHER SPECIFIED HEALTH STATUS SNOMED Code(s): 702205930 Status and Disposition: Remain inpatient for symptom management. Discussed with son, plan for assisted living in [place]. Counseling and/or Coordination of Care Minutes: coordinated with Dr. Aldridge and patient's son/POA
--- NOTE | 2017-05-07 14:35 | RAD ---
INDICATION: Cough COMPARISON: None TECHNIQUE: An AP portable view obtained at 0025 hours is submitted. FINDINGS: Bones/Soft Tissues: There are no acute bony findings. There is left chest wall and axillary surgery Cardiomediastinal: The cardiomediastinal silhouette is normal. Lungs: There are no focal infiltrates. There is diffuse increase in interstitial markings. Pleura: There are no pleural effusions. Other: None IMPRESSION: POSTOPERATIVE CHANGE LEFT CHEST WALL AND AXILLA. DIFFUSE INTERSTITIAL PROMINENCE. THIS COULD BE ACUTE OR CHRONIC.
[2017-05-07] MEDS: Haloperidol INJ IV/IM* 5 MG/ML AMP IM PRN ×2 (16:32→23:59)
[2017-05-07] MEDS: Mirtazapine TAB* 15 MG PO SCH (23:52)
[2017-05-08] MEDS: Heparin VIAL(*) 5000 UNITS/ML VIAL (FIVE THOUSAND) SUBCUT SCH ×3 (06:14→22:30)
[2017-05-08 06:29] LABS: ABS Basophils 0 10^3/ul (0-0.2); ABS Eosinophils 0.4 10^3/ul (0-0.6); ABS Lymphocytes 2.9 10^3/ul (1.0-4.8); ABS Monocytes 0.5 10^3/ul (0-0.8); ABS Nucleated RBC 0 10^3/ul; Eosinophil % 5.2 % (0-6); Hematocrit 32 % (35-47); Hemoglobin 10.5 g/dl (12.0-16.0); Lymphocyte % 42.3 % (25-47); Mean Corpuscular HGB Conc 33 g/dl (31-36); Mean Corpuscular Hemoglobin 32 pg (27-31); Mean Corpuscular Volume 96 fL (80-97); Mean Platelet Volume 8 um3 (7.4-10.4); Nucleated Red Blood Cells % 0; Platelet Count 160 10^3/ul (150-450); Red Blood Count 3.27 10^6/ul (4.0-5.4); Red Cell Distribution Width 16 % (10.5-15); White Blood Count 6.8 10^3/ul (3.5-10.8)
[2017-05-08] MEDS: Citalopram TAB* 10 MG PO SCH (08:02)
[2017-05-08] MEDS: Cyanocobalamin TAB* 500 MCG PO SCH (08:02)
[2017-05-08] MEDS ORDERED: NS 0.9% 1000 ML* 1,000 ML IV SCH (12:30)
--- NOTE | 2017-05-08 17:15 | PN ---
Subjective Date of Service: 05/08/17 Interval History: Patient seen and examined. Has been sleeping since last night. Arousable, states she's very tired when woken up. No complaints other than fatigue. 1:1 monitor in room. Objective Active Medications: Acetaminophen (Tylenol Tab*) 650 mg PO Q4H PRN PRN Reason: FEVER/PAIN Citalopram Hydrobromide (Celexa Tab*) 10 mg PO QAM [facility] PRN Reason: Protocol Last Admin: 05/08/17 08:02 Dose: Not Given Cyanocobalamin (Vitamin B12 Tab*) 500 mcg PO QAM [facility] Last Admin: 05/08/17 08:02 Dose: Not Given Haloperidol Lactate (Haldol Inj Iv/Im*) 5 mg IM Q6H PRN PRN Reason: AGITATION Last Admin: 05/07/17 23:59 Dose: 5 mg Heparin Sodium (Porcine) (Heparin Vial(*)) 5,000 units SUBCUT Q8HR [facility] Last Admin: 05/08/17 14:49 Dose: Not Given Sodium Chloride (Ns 0.9% 1000 Ml*) 1,000 mls @ 75 mls/hr IV PER RATE [facility] Last Admin: 05/08/17 12:33 Dose: 75 mls/hr Mirtazapine (Remeron Tab*) 30 mg PO BEDTIME [facility] Last Admin: 05/07/17 23:52 Dose: 30 mg Quetiapine Fumarate (Seroquel Tab*) 25 mg PO BEDTIME PRN PRN Reason: AGITATION Vital Signs - 8 hr 05/08/17 05/08/17 11:19 15:24 Temperature 98.7 F 98.3 F Pulse Rate 76 79 Respiratory 19 20 Rate Blood Pressure 112/77 133/53 (mmHg) O2 Sat by Pulse 95 95 Oximetry Oxygen Devices in Use Now: None Appearance: sleepy, arousable, NAD Eyes: No Scleral Icterus, PERRLA Ears/Nose/Mouth/Throat: NL Teeth, Lips, Gums Neck: Trachea Midline Respiratory: Symmetrical Chest Expansion and Respiratory Effort, Clear to Auscultation Cardiovascular: NL Sounds; No Murmurs; No JVD, RRR, No Edema Abdominal: NL Sounds; No Tenderness; No Distention Neurological: - - Oriented to person Nutrition: Taking PO's Result Diagrams: 05/08/17 05:51 05/06/17 05:48 Additional Lab and Data: Lab Results 05/05/17 05/05/17 05/05/17 Range/Units 15:33 15:59 15:59 WBC 8.9 (3.5-10.8) 10^3/ul RBC 3.33 L (4.0-5.4) 10^6/ul Hgb 10.8 L (12.0-16.0) g/dl Hct 32 L (35-47) % MCV 96 (80-97) fL MCH 32 H (27-31) pg MCHC 34 (31-36) g/dl RDW 16 H (10.5-15) % Plt Count 163 (150-450) 10^3/ul MPV 8 (7.4-10.4) um3 Neut % (Auto) 56.1 (38-83) % Lymph % (Auto) 35.0 (25-47) % [place] % (Auto) 7.1 H (0-7) % Eos % (Auto) 1.3 (0-6) % Baso % (Auto) 0.5 (0-2) % Absolute Neuts (auto) 5.0 (1.5-7.7) 10^3/ul Absolute Lymphs (auto) 3.1 (1.0-4.8) 10^3/ul Absolute Monos (auto) 0.6 (0-0.8) 10^3/ul Absolute Eos (auto) 0.1 (0-0.6) 10^3/ul Absolute Basos (auto) 0 (0-0.2) 10^3/ul Absolute Nucleated RBC 0 10^3/ul Nucleated RBC % 0.1 Sodium 141 (133-145) mmol/L Potassium 4.3 (3.5-5.0) mmol/L Chloride 109 (101-111) mmol/L Carbon Dioxide 28 (22-32) mmol/L Anion Gap 4 (2-11) mmol/L BUN 17 (6-24) mg/dL Creatinine 0.90 (0.51-0.95) mg/dL Est GFR ( Amer) 76.5 (>60) Est GFR (Non-Af Amer) 59.5 (>60) BUN/Creatinine Ratio 18.9 (8-20) Glucose 115 H (70-100) mg/dL Lactic Acid (0.5-2.0) mmol/L Calcium 9.2 (8.6-10.3) mg/dL Total Bilirubin 0.30 (0.2-1.0) mg/dL AST 15 (13-39) U/L ALT 5 L (7-52) U/L Alkaline Phosphatase 43 (34-104) U/L Ammonia (16-53) mol/L Troponin I 0.00 (<0.04) ng/mL Total Protein 6.6 (6.4-8.9) g/dL Albumin 3.4 (3.2-5.2) g/dL Globulin 3.2 (2-4) g/dL Albumin/Globulin Ratio 1.1 (1-3) Vitamin B12 457 (180-914) pg/mL TSH 0.03 L (0.34-5.60) mcIU/mL Free T4 1.41 H (0.61-1.12) ng/dL Thyroxine (T4) 9.68 (6.09-12.23) mcg/mL Free T3 2.80 (2.5-3.9) pg/mL Total T3 0.71 L (0.87-1.78) ng/mL Urine Color Yellow Urine Appearance Cloudy Urine pH 7.0 (5-9) Ur Specific [place] 1.006 L (1.010-1.030) Urine Protein Negative (Negative) Urine Ketones Negative (Negative) Urine Blood Negative (Negative) Urine Nitrate Negative (Negative) Urine Bilirubin Negative (Negative) Urine Urobilinogen Negative (Negative) Ur Leukocyte Esterase Negative (Negative) Urine Glucose Negative (Negative) 05/05/17 05/05/17 05/05/17 Range/Units 15:59 19:37 19:37 WBC 8.6 (3.5-10.8) 10^3/ul RBC 3.34 L (4.0-5.4) 10^6/ul Hgb 10.7 L (12.0-16.0) g/dl Hct 32 L (35-47) % MCV 96 (80-97) fL MCH 32 H (27-31) pg MCHC 33 (31-36) g/dl RDW 15 (10.5-15) % Plt Count 169 (150-450) 10^3/ul MPV 8 (7.4-10.4) um3 Neut % (Auto) 45.7 (38-83) % Lymph % (Auto) 46.3 (25-47) % [place] % (Auto) 6.1 (0-7) % Eos % (Auto) 1.2 (0-6) % Baso % (Auto) 0.7 (0-2) % Absolute Neuts (auto) 3.9 (1.5-7.7) 10^3/ul Absolute Lymphs (auto) 4.0 (1.0-4.8) 10^3/ul Absolute Monos (auto) 0.5 (0-0.8) 10^3/ul Absolute Eos (auto) 0.1 (0-0.6) 10^3/ul Absolute Basos (auto) 0.1 (0-0.2) 10^3/ul Absolute Nucleated RBC 0 10^3/ul Nucleated RBC % 0 Sodium (133-145) mmol/L Potassium (3.5-5.0) mmol/L Chloride (101-111) mmol/L Carbon Dioxide (22-32) mmol/L Anion Gap (2-11) mmol/L BUN 17 (6-24) mg/dL Creatinine (0.51-0.95) mg/dL Est GFR ( Amer) (>60) Est GFR (Non-Af Amer) (>60) BUN/Creatinine Ratio (8-20) Glucose (70-100) mg/dL Lactic Acid 1.7 (0.5-2.0) mmol/L Calcium (8.6-10.3) mg/dL Total Bilirubin (0.2-1.0) mg/dL AST (13-39) U/L ALT (7-52) U/L Alkaline Phosphatase (34-104) U/L Ammonia (16-53) mol/L Troponin I (<0.04) ng/mL Total Protein (6.4-8.9) g/dL Albumin (3.2-5.2) g/dL Globulin (2-4) g/dL Albumin/Globulin Ratio (1-3) Vitamin B12 (180-914) pg/mL TSH (0.34-5.60) mcIU/mL Free T4 (0.61-1.12) ng/dL Thyroxine (T4) (6.09-12.23) mcg/mL Free T3 (2.5-3.9) pg/mL Total T3 (0.87-1.78) ng/mL Urine Color Urine Appearance Urine pH (5-9) Ur Specific [place] (1.010-1.030) Urine Protein (Negative) Urine Ketones (Negative) Urine Blood (Negative) Urine Nitrate (Negative) Urine Bilirubin (Negative) Urine Urobilinogen (Negative) Ur Leukocyte Esterase (Negative) Urine Glucose (Negative) 05/05/17 Range/Units 19:37 WBC (3.5-10.8) 10^3/ul RBC (4.0-5.4) 10^6/ul Hgb (12.0-16.0) g/dl Hct (35-47) % MCV (80-97) fL MCH (27-31) pg MCHC (31-36) g/dl RDW (10.5-15) % Plt Count (150-450) 10^3/ul MPV (7.4-10.4) um3 Neut % (Auto) (38-83) % Lymph % (Auto) (25-47) % [place] % (Auto) (0-7) % Eos % (Auto) (0-6) % Baso % (Auto) (0-2) % Absolute Neuts (auto) (1.5-7.7) 10^3/ul Absolute Lymphs (auto) (1.0-4.8) 10^3/ul Absolute Monos (auto) (0-0.8) 10^3/ul Absolute Eos (auto) (0-0.6) 10^3/ul Absolute Basos (auto) (0-0.2) 10^3/ul Absolute Nucleated RBC 10^3/ul Nucleated RBC % Sodium (133-145) mmol/L Potassium (3.5-5.0) mmol/L Chloride (101-111) mmol/L Carbon Dioxide (22-32) mmol/L Anion Gap (2-11) mmol/L BUN (6-24) mg/dL Creatinine (0.51-0.95) mg/dL Est GFR ( Amer) (>60) Est GFR (Non-Af Amer) (>60) BUN/Creatinine Ratio (8-20) Glucose (70-100) mg/dL Lactic Acid (0.5-2.0) mmol/L Calcium (8.6-10.3) mg/dL Total Bilirubin (0.2-1.0) mg/dL AST (13-39) U/L ALT (7-52) U/L Alkaline Phosphatase (34-104) U/L Ammonia 38 (16-53) mol/L Troponin I (<0.04) ng/mL Total Protein (6.4-8.9) g/dL Albumin (3.2-5.2) g/dL Globulin (2-4) g/dL Albumin/Globulin Ratio (1-3) Vitamin B12 (180-914) pg/mL TSH (0.34-5.60) mcIU/mL Free T4 (0.61-1.12) ng/dL Thyroxine (T4) (6.09-12.23) mcg/mL Free T3 (2.5-3.9) pg/mL Total T3 (0.87-1.78) ng/mL Urine Color Urine Appearance Urine pH (5-9) Ur Specific [place] (1.010-1.030) Urine Protein (Negative) Urine Ketones (Negative) Urine Blood (Negative) Urine Nitrate (Negative) Urine Bilirubin (Negative) Urine Urobilinogen (Negative) Ur Leukocyte Esterase (Negative) Urine Glucose (Negative) Diagnostic Imaging: MRI BRAIN Patient Name: GAMA MANZO Medical Record#: [id number] Ordering Physician: Alissa Aldridge MD Acct.#: [id number] : 1930 Age: 87 Sex: F Location: [address] [place] [address] MEDICAL Exam Date: 05/06/17 1601 ADM Status: ADM Nay Order Information: MRI BRAIN W/O Accession Number: [id number] CPT: 31939 Indication: Dementia. Mental status change. Comparison: CT brain of one day prior. Technique: [employer] 1.5 T[employer]anie [id number] with GEM suite. MRI brain without contrast. Report: Diffusion series is negative for acute or subacute ischemia. Susceptibility series is negative for stigmata of hemosiderin deposition to indicate previous hemorrhage. Moderate prominence of the cerebral sulci reflecting volume loss. Unremarkable ventricles and basal cisterns. Increased T2 signal in the periventricular and subcortical white matter without mass effect most consistent with chronic small vessel ischemic disease. No intra or extra-axial fluid collection evident. Unremarkable orbital contents. Preserved major intracranial flow-voids. Indolent thickening of the inner table of the frontal bone. No suspicious calvarial or skull base fractures evident. Clear paranasal sinuses and mastoid air spaces. Unremarkable scalp. IMPRESSION: Involutional change and stigmata of chronic small vessel ischemic disease. No evidence for acute or subacute ischemia or other acute intracranial process. <Electronically signed by Carroll Adame MD in [place]> 05/06/172024 Dictated By: Carroll Adame MD Dictated Date/Time: 05/06/172024 Transcribed Date/Time: 05/06/172020 Copy to: HEAD CT Patient Name: GAMA MANZO Medical Record#: [id number] Ordering Physician: Adrian Barr MD Acct.#: [id number] : 1930 Age: 87 Sex: F Location: EMERGENCY DEPARTMENT Exam Date: 05/05/171721 ADM Status: REG ER Order Information: CT BRAIN WO Accession Number: [id number] CPT: 43413 Indication: Altered mental status. Comparison: No prior exams available on the [facility] [place] for comparison. Technique: Noncontrast CT vertex of skull through foramen magnum. Report: Moderately severe prominence of the cerebral sulci and moderate prominence of the cerebellar fissures reflecting atrophy. Unremarkable ventricles and basal cisterns. 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 Negative for willoughby matter white matter obscuration, intra or extra-axial hemorrhage, or mass effect. Unremarkable partially visualized orbital contents. No fracture or suspicious calvarial or skull base lesion evident. Indolent thickening of the inner table of the frontal bone noted. Clear visualized paranasal sinuses and mastoid air spaces. Unremarkable scalp. IMPRESSION: 1. No acute intracranial process evident. 2. Involutional change and stigmata of chronic small vessel ischemic disease. <Electronically signed by Carroll Adame MD in [place]> 05/05/171912 Dictated By: Carroll Adame MD Dictated Date/Time: 05/05/171912 Transcribed Date/Time: 05/05/171908 Copy to: Assess/Plan/Problems-Billing Assessment: This is a very confused 87 year old female with history of dementia with more severe features last 48 hours and no clear etiology, responding to PRN haldol. - Patient Problems (1) Altered mental status Code(s): R41.82 - ALTERED MENTAL STATUS, UNSPECIFIED SNOMED Code(s): 764474897 Comment: - Baseline dementia, but now with bizarre behavior and not sleeping - Patient had been awake for days and agitated, resting comfortably now - CT head negative for any acute pathology - MRI with no changes - Does not appear to have infectious origin - Remeron increased last night and seroquel PRN, would hold seroquel for sedation - Dr. Aldridge following (2) Hypothyroid Code(s): E03.9 - HYPOTHYROIDISM, UNSPECIFIED SNOMED Code(s): 07685779 Comment: - TSH 0.03, will continue to hold synthroid - overmedication with synthroid may have been contributing factor - Recheck TSH in AM (3) Full code status Code(s): Z78.9 - OTHER SPECIFIED HEALTH STATUS SNOMED Code(s): 028583639 Status and Disposition: Remain inpatient for symptom management, has bed in [place] assisted living for friday. Will continue to titrate meds for effect and transfer when stable. Counseling and/or Coordination of Care Minutes: coordinated with Dr. Aldridge.
[2017-05-08] MEDS: Mirtazapine TAB* 15 MG PO SCH (22:39)
[2017-05-09] MEDS: Heparin VIAL(*) 5000 UNITS/ML VIAL (FIVE THOUSAND) SUBCUT SCH ×3 (05:38→21:11)
[2017-05-09] MEDS: Citalopram TAB* 10 MG PO SCH (08:56)
[2017-05-09] MEDS: Cyanocobalamin TAB* 500 MCG PO SCH (08:56)
--- NOTE | 2017-05-09 08:56 | PN ---
Subjective Date of Service: 05/09/17 Interval History: Patient seen and examined. Appears more confused, hands are trembling. No agitation noted, more quiet than she's been in the last few days. Denies pain, but unable to obtain full ROS 2/2 condition. Objective Active Medications: Acetaminophen (Tylenol Tab*) 650 mg PO Q4H PRN PRN Reason: FEVER/PAIN Citalopram Hydrobromide (Celexa Tab*) 10 mg PO QAM [facility] PRN Reason: Protocol Last Admin: 05/08/17 08:02 Dose: Not Given Cyanocobalamin (Vitamin B12 Tab*) 500 mcg PO QAM [facility] Last Admin: 05/08/17 08:02 Dose: Not Given Haloperidol Lactate (Haldol Inj Iv/Im*) 5 mg IM Q6H PRN PRN Reason: AGITATION Last Admin: 05/07/17 23:59 Dose: 5 mg Heparin Sodium (Porcine) (Heparin Vial(*)) 5,000 units SUBCUT Q8HR [facility] Last Admin: 05/09/17 05:38 Dose: 5,000 units Sodium Chloride (Ns 0.9% 1000 Ml*) 1,000 mls @ 75 mls/hr IV PER RATE [facility] Last Admin: 05/08/17 12:33 Dose: 75 mls/hr Mirtazapine (Remeron Tab*) 30 mg PO BEDTIME [facility] Last Admin: 05/08/17 22:39 Dose: Not Given Quetiapine Fumarate (Seroquel Tab*) 25 mg PO BEDTIME PRN PRN Reason: AGITATION Vital Signs - 8 hr 05/09/17 03:05 Temperature 98.8 F Pulse Rate 80 Respiratory 16 Rate Blood Pressure 144/63 (mmHg) O2 Sat by Pulse 95 Oximetry Oxygen Devices in Use Now: None Appearance: Alert, confused Eyes: No Scleral Icterus, PERRLA Ears/Nose/Mouth/Throat: Mucous Membranes Moist Neck: Trachea Midline Respiratory: Symmetrical Chest Expansion and Respiratory Effort, Clear to Auscultation Cardiovascular: NL Sounds; No Murmurs; No JVD, RRR Extremities: No Edema, No Clubbing, Cyanosis Skin: No Rash or Ulcers Neurological: - - confused, alert Nutrition: Taking PO's, - - needs encouragement to take breakfast Result Diagrams: 05/08/17 05:51 05/06/17 05:48 Additional Lab and Data: Lab Results 05/05/17 05/05/17 05/05/17 Range/Units 15:33 15:59 15:59 WBC 8.9 (3.5-10.8) 10^3/ul RBC 3.33 L (4.0-5.4) 10^6/ul Hgb 10.8 L (12.0-16.0) g/dl Hct 32 L (35-47) % MCV 96 (80-97) fL MCH 32 H (27-31) pg MCHC 34 (31-36) g/dl RDW 16 H (10.5-15) % Plt Count 163 (150-450) 10^3/ul MPV 8 (7.4-10.4) um3 Neut % (Auto) 56.1 (38-83) % Lymph % (Auto) 35.0 (25-47) % [place] % (Auto) 7.1 H (0-7) % Eos % (Auto) 1.3 (0-6) % Baso % (Auto) 0.5 (0-2) % Absolute Neuts (auto) 5.0 (1.5-7.7) 10^3/ul Absolute Lymphs (auto) 3.1 (1.0-4.8) 10^3/ul Absolute Monos (auto) 0.6 (0-0.8) 10^3/ul Absolute Eos (auto) 0.1 (0-0.6) 10^3/ul Absolute Basos (auto) 0 (0-0.2) 10^3/ul Absolute Nucleated RBC 0 10^3/ul Nucleated RBC % 0.1 Sodium 141 (133-145) mmol/L Potassium 4.3 (3.5-5.0) mmol/L Chloride 109 (101-111) mmol/L Carbon Dioxide 28 (22-32) mmol/L Anion Gap 4 (2-11) mmol/L BUN 17 (6-24) mg/dL Creatinine 0.90 (0.51-0.95) mg/dL Est GFR ( Amer) 76.5 (>60) Est GFR (Non-Af Amer) 59.5 (>60) BUN/Creatinine Ratio 18.9 (8-20) Glucose 115 H (70-100) mg/dL Lactic Acid (0.5-2.0) mmol/L Calcium 9.2 (8.6-10.3) mg/dL Total Bilirubin 0.30 (0.2-1.0) mg/dL AST 15 (13-39) U/L ALT 5 L (7-52) U/L Alkaline Phosphatase 43 (34-104) U/L Ammonia (16-53) mol/L Troponin I 0.00 (<0.04) ng/mL Total Protein 6.6 (6.4-8.9) g/dL Albumin 3.4 (3.2-5.2) g/dL Globulin 3.2 (2-4) g/dL Albumin/Globulin Ratio 1.1 (1-3) Vitamin B12 457 (180-914) pg/mL TSH 0.03 L (0.34-5.60) mcIU/mL Free T4 1.41 H (0.61-1.12) ng/dL Thyroxine (T4) 9.68 (6.09-12.23) mcg/mL Free T3 2.80 (2.5-3.9) pg/mL Total T3 0.71 L (0.87-1.78) ng/mL Urine Color Yellow Urine Appearance Cloudy Urine pH 7.0 (5-9) Ur Specific [place] 1.006 L (1.010-1.030) Urine Protein Negative (Negative) Urine Ketones Negative (Negative) Urine Blood Negative (Negative) Urine Nitrate Negative (Negative) Urine Bilirubin Negative (Negative) Urine Urobilinogen Negative (Negative) Ur Leukocyte Esterase Negative (Negative) Urine Glucose Negative (Negative) 05/05/17 05/05/17 05/05/17 Range/Units 15:59 19:37 19:37 WBC 8.6 (3.5-10.8) 10^3/ul RBC 3.34 L (4.0-5.4) 10^6/ul Hgb 10.7 L (12.0-16.0) g/dl Hct 32 L (35-47) % MCV 96 (80-97) fL MCH 32 H (27-31) pg MCHC 33 (31-36) g/dl RDW 15 (10.5-15) % Plt Count 169 (150-450) 10^3/ul MPV 8 (7.4-10.4) um3 Neut % (Auto) 45.7 (38-83) % Lymph % (Auto) 46.3 (25-47) % [place] % (Auto) 6.1 (0-7) % Eos % (Auto) 1.2 (0-6) % Baso % (Auto) 0.7 (0-2) % Absolute Neuts (auto) 3.9 (1.5-7.7) 10^3/ul Absolute Lymphs (auto) 4.0 (1.0-4.8) 10^3/ul Absolute Monos (auto) 0.5 (0-0.8) 10^3/ul Absolute Eos (auto) 0.1 (0-0.6) 10^3/ul Absolute Basos (auto) 0.1 (0-0.2) 10^3/ul Absolute Nucleated RBC 0 10^3/ul Nucleated RBC % 0 Sodium (133-145) mmol/L Potassium (3.5-5.0) mmol/L Chloride (101-111) mmol/L Carbon Dioxide (22-32) mmol/L Anion Gap (2-11) mmol/L BUN 17 (6-24) mg/dL Creatinine (0.51-0.95) mg/dL Est GFR ( Amer) (>60) Est GFR (Non-Af Amer) (>60) BUN/Creatinine Ratio (8-20) Glucose (70-100) mg/dL Lactic Acid 1.7 (0.5-2.0) mmol/L Calcium (8.6-10.3) mg/dL Total Bilirubin (0.2-1.0) mg/dL AST (13-39) U/L ALT (7-52) U/L Alkaline Phosphatase (34-104) U/L Ammonia (16-53) mol/L Troponin I (<0.04) ng/mL Total Protein (6.4-8.9) g/dL Albumin (3.2-5.2) g/dL Globulin (2-4) g/dL Albumin/Globulin Ratio (1-3) Vitamin B12 (180-914) pg/mL TSH (0.34-5.60) mcIU/mL Free T4 (0.61-1.12) ng/dL Thyroxine (T4) (6.09-12.23) mcg/mL Free T3 (2.5-3.9) pg/mL Total T3 (0.87-1.78) ng/mL Urine Color Urine Appearance Urine pH (5-9) Ur Specific [place] (1.010-1.030) Urine Protein (Negative) Urine Ketones (Negative) Urine Blood (Negative) Urine Nitrate (Negative) Urine Bilirubin (Negative) Urine Urobilinogen (Negative) Ur Leukocyte Esterase (Negative) Urine Glucose (Negative) 05/05/17 Range/Units 19:37 WBC (3.5-10.8) 10^3/ul RBC (4.0-5.4) 10^6/ul Hgb (12.0-16.0) g/dl Hct (35-47) % MCV (80-97) fL MCH (27-31) pg MCHC (31-36) g/dl RDW (10.5-15) % Plt Count (150-450) 10^3/ul MPV (7.4-10.4) um3 Neut % (Auto) (38-83) % Lymph % (Auto) (25-47) % [place] % (Auto) (0-7) % Eos % (Auto) (0-6) % Baso % (Auto) (0-2) % Absolute Neuts (auto) (1.5-7.7) 10^3/ul Absolute Lymphs (auto) (1.0-4.8) 10^3/ul Absolute Monos (auto) (0-0.8) 10^3/ul Absolute Eos (auto) (0-0.6) 10^3/ul Absolute Basos (auto) (0-0.2) 10^3/ul Absolute Nucleated RBC 10^3/ul Nucleated RBC % Sodium (133-145) mmol/L Potassium (3.5-5.0) mmol/L Chloride (101-111) mmol/L Carbon Dioxide (22-32) mmol/L Anion Gap (2-11) mmol/L BUN (6-24) mg/dL Creatinine (0.51-0.95) mg/dL Est GFR ( Amer) (>60) Est GFR (Non-Af Amer) (>60) BUN/Creatinine Ratio (8-20) Glucose (70-100) mg/dL Lactic Acid (0.5-2.0) mmol/L Calcium (8.6-10.3) mg/dL Total Bilirubin (0.2-1.0) mg/dL AST (13-39) U/L ALT (7-52) U/L Alkaline Phosphatase (34-104) U/L Ammonia 38 (16-53) mol/L Troponin I (<0.04) ng/mL Total Protein (6.4-8.9) g/dL Albumin (3.2-5.2) g/dL Globulin (2-4) g/dL Albumin/Globulin Ratio (1-3) Vitamin B12 (180-914) pg/mL TSH (0.34-5.60) mcIU/mL Free T4 (0.61-1.12) ng/dL Thyroxine (T4) (6.09-12.23) mcg/mL Free T3 (2.5-3.9) pg/mL Total T3 (0.87-1.78) ng/mL Urine Color Urine Appearance Urine pH (5-9) Ur Specific [place] (1.010-1.030) Urine Protein (Negative) Urine Ketones (Negative) Urine Blood (Negative) Urine Nitrate (Negative) Urine Bilirubin (Negative) Urine Urobilinogen (Negative) Ur Leukocyte Esterase (Negative) Urine Glucose (Negative) Diagnostic Imaging: MRI BRAIN Patient Name: GAMA MANZO Medical Record#: [id number] Ordering Physician: Alissa Aldridge MD Acct.#: [id number] : 1930 Age: 87 Sex: F Location: [address] [place] [address] MEDICAL Exam Date: 05/06/17 1601 ADM Status: ADM Nay Order Information: MRI BRAIN W/O Accession Number: [id number] CPT: 67563 Indication: Dementia. Mental status change. Comparison: CT brain of one day prior. Technique: Vilynxa 1.5 Tiffanie [id number] with GEM suite. MRI brain without contrast. Report: Diffusion series is negative for acute or subacute ischemia. Susceptibility series is negative for stigmata of hemosiderin deposition to indicate previous hemorrhage. Moderate prominence of the cerebral sulci reflecting volume loss. Unremarkable ventricles and basal cisterns. Increased T2 signal in the periventricular and subcortical white matter without mass effect most consistent with chronic small vessel ischemic disease. No intra or extra-axial fluid collection evident. Unremarkable orbital contents. Preserved major intracranial flow-voids. Indolent thickening of the inner table of the frontal bone. No suspicious calvarial or skull base fractures evident. Clear paranasal sinuses and mastoid air spaces. Unremarkable scalp. IMPRESSION: Involutional change and stigmata of chronic small vessel ischemic disease. No evidence for acute or subacute ischemia or other acute intracranial process. <Electronically signed by Carroll Adame MD in OV> 05/06/172024 Dictated By: Carroll Adame MD Dictated Date/Time: 05/06/172024 Transcribed Date/Time: 05/06/172020 Copy to: HEAD CT Patient Name: GAMA MANZO Medical Record#: [id number] Ordering Physician: Adrian Barr MD Acct.#: [id number] : 1930 Age: 87 Sex: F Location: EMERGENCY DEPARTMENT Exam Date: 05/05/171721 ADM Status: REG ER Order Information: CT BRAIN WO Accession Number: [id number] CPT: 97751 Indication: Altered mental status. Comparison: No prior exams available on the [facility] [place]. Technique: Noncontrast CT vertex of skull through foramen magnum. Report: Moderately severe prominence of the cerebral sulci and moderate prominence of the cerebellar fissures reflecting atrophy. Unremarkable ventricles and basal cisterns. 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 Negative for [place] matter white matter obscuration, intra or extra-axial hemorrhage, or mass effect. Unremarkable partially visualized orbital contents. No fracture or suspicious calvarial or skull base lesion evident. Indolent thickening of the inner table of the frontal bone noted. Clear visualized paranasal sinuses and mastoid air spaces. Unremarkable scalp. IMPRESSION: 1. No acute intracranial process evident. 2. Involutional change and stigmata of chronic small vessel ischemic disease. <Electronically signed by Carroll Adame MD in [place]> 05/05/171912 Dictated By: Carroll Adame MD Dictated Date/Time: 05/05/171912 Transcribed Date/Time: 05/05/171908 Copy to: Assess/Plan/Problems-Billing Assessment: This is a very confused 87 year old female with history of dementia with more severe features at home and since admission. - Patient Problems (1) Altered mental status Code(s): R41.82 - ALTERED MENTAL STATUS, UNSPECIFIED SNOMED Code(s): 775179185 Comment: - Baseline dementia, slept yesterday and last night, less agitation this AM however she does appear to have purposeless behavior (rolling the blanket in bed , pushing the tray table around) - Check CMP to ensure no electrolyte disturbaces, CBC 05/08 unremarkable - CT head negative for any acute pathology - MRI with no changes - Remeron increased, seroquel PRN, would hold seroquel for sedation - Dr. Aldridge following - Behavior appears to be stabilized today (2) Hypothyroid Code(s): E03.9 - HYPOTHYROIDISM, UNSPECIFIED SNOMED Code(s): 03794466 Comment: - TSH 0.03, continue to hold synthroid - overmedication with synthroid may have been contributing factor - Recheck TSH this AM (3) Full code status Code(s): Z78.9 - OTHER SPECIFIED HEALTH STATUS SNOMED Code(s): 164573609 Status and Disposition: Remain inpatient for symptom management, has bed in [facility] assisted living for friday. Counseling and/or Coordination of Care Minutes: coordinated with staff
[2017-05-09 09:59] LABS: EGFR Non-African American 57.3 (>60)
[2017-05-09] MEDS: Mirtazapine TAB* 15 MG PO SCH (21:10)
[2017-05-10] MEDS: Heparin VIAL(*) 5000 UNITS/ML VIAL (FIVE THOUSAND) SUBCUT SCH ×3 (06:00→20:54)
[2017-05-10] MEDS: Cyanocobalamin TAB* 500 MCG PO SCH (10:47)
[2017-05-10] MEDS: Citalopram TAB* 10 MG PO SCH (10:47)
--- NOTE | 2017-05-10 13:34 | PN ---
Subjective Date of Service: 05/10/17 Interval History: Patient is alert and awake sitting up in bed. She has noted confusion. She does not know the year but is able to tell me her . She denies any complaints. Objective Active Medications: Acetaminophen (Tylenol Tab*) 650 mg PO Q4H PRN PRN Reason: FEVER/PAIN Cital[facility] ([facility]*) [facility] Reason: Protocol Last Admin: 05/10/17 10:47 Dose: 10 mg Cyanocobalamin (Vitamin B12 Tab*) 500 mcg PO QAM [facility] Last Admin: 05/10/17 10:47 Dose: 500 mcg Heparin Sodium (Porcine) (Heparin Vial(*)) 5,000 units SUBCUT Q8HR [facility] Last Admin: 05/10/17 06:00 Dose: Not Given Sodium Chloride (Ns 0.9% 1000 Ml*) 1,000 mls @ 75 mls/hr IV PER RATE [facility] Last Admin: 05/08/17 12:33 Dose: 75 mls/hr Mirtazapine (Remeron Tab*) 30 mg PO BEDTIME [facility] Last Admin: 05/09/17 21:10 Dose: 30 mg Quetiapine Fumarate (Seroquel Tab*) 25 mg PO BEDTIME PRN PRN Reason: AGITATION Vital Signs - 8 hr 05/10/17 05/10/17 05/10/17 07:40 08:00 09:16 Temperature Pulse Rate 73 72 Respiratory 16 20 Rate Blood Pressure 125/55 (mmHg) O2 Sat by Pulse 89 95 Oximetry 05/10/17 11:29 Temperature 97.7 F Pulse Rate 63 Respiratory 17 Rate Blood Pressure 111/45 (mmHg) O2 Sat by Pulse 96 Oximetry Oxygen Devices in Use Now: None Appearance: elderly female alert in NAD, confused Eyes: No Scleral Icterus, PERRLA Respiratory: Symmetrical Chest Expansion and Respiratory Effort, Clear to Auscultation Cardiovascular: NL Sounds; No Murmurs; No JVD, RRR, No Edema Abdominal: NL Sounds; No Tenderness; No Distention Extremities: No Edema, No Clubbing, Cyanosis Skin: No Rash or Ulcers, No Nodules or Sclerosis Neurological: NL Sensation, NL Muscle Strength and Tone, - - alert Lines/Tubes/Other Access: Clean, Dry and Intact Peripheral IV Nutrition: Taking PO's Result Diagrams: 05/08/17 05:51 05/09/17 09:20 Additional Lab and Data: Lab Results 05/05/17 05/05/17 05/05/17 Range/Units 15:33 15:59 15:59 WBC 8.9 (3.5-10.8) 10^3/ul RBC 3.33 L (4.0-5.4) 10^6/ul Hgb 10.8 L (12.0-16.0) g/dl Hct 32 L (35-47) % MCV 96 (80-97) fL MCH 32 H (27-31) pg MCHC 34 (31-36) g/dl RDW 16 H (10.5-15) % Plt Count 163 (150-450) 10^3/ul MPV 8 (7.4-10.4) um3 Neut % (Auto) 56.1 (38-83) % Lymph % (Auto) 35.0 (25-47) % [place] % (Auto) 7.1 H (0-7) % Eos % (Auto) 1.3 (0-6) % Baso % (Auto) 0.5 (0-2) % Absolute Neuts (auto) 5.0 (1.5-7.7) 10^3/ul Absolute Lymphs (auto) 3.1 (1.0-4.8) 10^3/ul Absolute Monos (auto) 0.6 (0-0.8) 10^3/ul Absolute Eos (auto) 0.1 (0-0.6) 10^3/ul Absolute Basos (auto) 0 (0-0.2) 10^3/ul Absolute Nucleated RBC 0 10^3/ul Nucleated RBC % 0.1 Sodium 141 (133-145) mmol/L Potassium 4.3 (3.5-5.0) mmol/L Chloride 109 (101-111) mmol/L Carbon Dioxide 28 (22-32) mmol/L Anion Gap 4 (2-11) mmol/L BUN 17 (6-24) mg/dL Creatinine 0.90 (0.51-0.95) mg/dL Est GFR ( Amer) 76.5 (>60) Est GFR (Non-Af Amer) 59.5 (>60) BUN/Creatinine Ratio 18.9 (8-20) Glucose 115 H (70-100) mg/dL Lactic Acid (0.5-2.0) mmol/L Calcium 9.2 (8.6-10.3) mg/dL Total Bilirubin 0.30 (0.2-1.0) mg/dL AST 15 (13-39) U/L ALT 5 L (7-52) U/L Alkaline Phosphatase 43 (34-104) U/L Ammonia (16-53) mol/L Troponin I 0.00 (<0.04) ng/mL Total Protein 6.6 (6.4-8.9) g/dL Albumin 3.4 (3.2-5.2) g/dL Globulin 3.2 (2-4) g/dL Albumin/Globulin Ratio 1.1 (1-3) Vitamin B12 457 (180-914) pg/mL TSH 0.03 L (0.34-5.60) mcIU/mL Free T4 1.41 H (0.61-1.12) ng/dL Thyroxine (T4) 9.68 (6.09-12.23) mcg/mL Free T3 2.80 (2.5-3.9) pg/mL Total T3 0.71 L (0.87-1.78) ng/mL Urine Color Yellow Urine Appearance Cloudy Urine pH 7.0 (5-9) Ur Specific [place] 1.006 L (1.010-1.030) Urine Protein Negative (Negative) Urine Ketones Negative (Negative) Urine Blood Negative (Negative) Urine Nitrate Negative (Negative) Urine Bilirubin Negative (Negative) Urine Urobilinogen Negative (Negative) Ur Leukocyte Esterase Negative (Negative) Urine Glucose Negative (Negative) 05/05/17 05/05/17 05/05/17 Range/Units 15:59 19:37 19:37 WBC 8.6 (3.5-10.8) 10^3/ul RBC 3.34 L (4.0-5.4) 10^6/ul Hgb 10.7 L (12.0-16.0) g/dl Hct 32 L (35-47) % MCV 96 (80-97) fL MCH 32 H (27-31) pg MCHC 33 (31-36) g/dl RDW 15 (10.5-15) % Plt Count 169 (150-450) 10^3/ul MPV 8 (7.4-10.4) um3 Neut % (Auto) 45.7 (38-83) % Lymph % (Auto) 46.3 (25-47) % [place] % (Auto) 6.1 (0-7) % Eos % (Auto) 1.2 (0-6) % Baso % (Auto) 0.7 (0-2) % Absolute Neuts (auto) 3.9 (1.5-7.7) 10^3/ul Absolute Lymphs (auto) 4.0 (1.0-4.8) 10^3/ul Absolute Monos (auto) 0.5 (0-0.8) 10^3/ul Absolute Eos (auto) 0.1 (0-0.6) 10^3/ul Absolute Basos (auto) 0.1 (0-0.2) 10^3/ul Absolute Nucleated RBC 0 10^3/ul Nucleated RBC % 0 Sodium (133-145) mmol/L Potassium (3.5-5.0) mmol/L Chloride (101-111) mmol/L Carbon Dioxide (22-32) mmol/L Anion Gap (2-11) mmol/L BUN 17 (6-24) mg/dL Creatinine (0.51-0.95) mg/dL Est GFR ( Amer) (>60) Est GFR (Non-Af Amer) (>60) BUN/Creatinine Ratio (8-20) Glucose (70-100) mg/dL Lactic Acid 1.7 (0.5-2.0) mmol/L Calcium (8.6-10.3) mg/dL Total Bilirubin (0.2-1.0) mg/dL AST (13-39) U/L ALT (7-52) U/L Alkaline Phosphatase (34-104) U/L Ammonia (16-53) mol/L Troponin I (<0.04) ng/mL Total Protein (6.4-8.9) g/dL Albumin (3.2-5.2) g/dL Globulin (2-4) g/dL Albumin/Globulin Ratio (1-3) Vitamin B12 (180-914) pg/mL TSH (0.34-5.60) mcIU/mL Free T4 (0.61-1.12) ng/dL Thyroxine (T4) (6.09-12.23) mcg/mL Free T3 (2.5-3.9) pg/mL Total T3 (0.87-1.78) ng/mL Urine Color Urine Appearance Urine pH (5-9) Ur Specific [place] (1.010-1.030) Urine Protein (Negative) Urine Ketones (Negative) Urine Blood (Negative) Urine Nitrate (Negative) Urine Bilirubin (Negative) Urine Urobilinogen (Negative) Ur Leukocyte Esterase (Negative) Urine Glucose (Negative) Assess/Plan/Problems-Billing Assessment: This is a very confused 87 year old female with history of dementia with more severe features at home and since admission. - Patient Problems (1) Altered mental status Comment: - Baseline dementia, less agitation today, improving but continues to be confused. Suspect worsening dementia. - Labs unremarkable - CT head negative for any acute pathology - MRI with no changes - Remeron increased, seroquel PRN, would hold seroquel for sedation - Dr. Aldridge following - Behavior appears to be more kay today (2) Hypothyroid Comment: - TSH 0.03, continue to hold synthroid - overmedication with synthroid may have been contributing factor (3) Full code status Status and Disposition: Remain inpatient for symptom management, has bed in [place] assisted living for friday.
[2017-05-10] MEDS: Mirtazapine TAB* 15 MG PO SCH (19:40)
[2017-05-11] MEDS: Heparin VIAL(*) 5000 UNITS/ML VIAL (FIVE THOUSAND) SUBCUT SCH ×3 (06:11→21:12)
[2017-05-11] MEDS: Citalopram TAB* 10 MG PO SCH (10:37)
[2017-05-11] MEDS: Cyanocobalamin TAB* 500 MCG PO SCH (10:37)
--- NOTE | 2017-05-11 11:08 | PN ---
Subjective Date of Service: 05/11/17 Interval History: Pt sitting up in bed in [facility]. Alert to self. Very confused at baseline. Per son she is at her baseline. Pt offers no complaints. Per nursing staff no concerns. Spoke to the son at length today who agrees with the plan of care. Objective Active Medications: Acetaminophen (Tylenol Tab*) 650 mg PO Q4H PRN PRN Reason: FEVER/PAIN Citalopram [facility] ([facility]*) [facility] Reason: Protocol Last Admin: 05/11/17 10:37 Dose: 10 mg Cyanocobalamin (Vitamin B12 Tab*) 500 mcg PO QAM [facility] Last Admin: 05/11/17 10:37 Dose: 500 mcg Heparin Sodium (Porcine) (Heparin Vial(*)) 5,000 units SUBCUT Q8HR [facility] Last Admin: 05/11/17 06:11 Dose: 5,000 units Sodium Chloride (Ns 0.9% 1000 Ml*) 1,000 mls @ 75 mls/hr IV PER RATE [facility] Last Admin: 05/08/17 12:33 Dose: 75 mls/hr Mirtazapine (Remeron Tab*) 30 mg PO BEDTIME [facility] Last Admin: 05/10/17 19:40 Dose: 30 mg Quetiapine Fumarate (Seroquel Tab*) 25 mg PO BEDTIME PRN PRN Reason: AGITATION Vital Signs - 8 hr 05/11/17 05/11/17 05/11/17 03:24 07:48 08:00 Temperature 98.1 F 98.1 F Pulse Rate 91 81 Respiratory 18 18 16 Rate Blood Pressure 124/42 132/60 (mmHg) O2 Sat by Pulse 91 94 Oximetry Oxygen Devices in Use Now: None Appearance: elderly female sitting up in bed alert, very pleasent in NAD Eyes: No Scleral Icterus, PERRLA Ears/Nose/Mouth/Throat: NL Teeth, Lips, Gums, Mucous Membranes Moist Neck: NL Appearance and Movements; NL JVP Respiratory: Symmetrical Chest Expansion and Respiratory Effort, Clear to Auscultation Cardiovascular: NL Sounds; No Murmurs; No JVD, RRR, No Edema Abdominal: NL Sounds; No Tenderness; No Distention Extremities: No Edema, No Clubbing, Cyanosis Skin: No Rash or Ulcers, No Nodules or Sclerosis Neurological: Alert and Oriented x 3, NL Sensation, NL Muscle Strength and Tone Lines/Tubes/Other Access: Clean, Dry and Intact Peripheral IV Nutrition: Taking PO's Result Diagrams: 05/08/17 05:51 05/09/17 09:20 Additional Lab and Data: Lab Results 05/05/17 05/05/17 05/05/17 Range/Units 15:33 15:59 15:59 WBC 8.9 (3.5-10.8) 10^3/ul RBC 3.33 L (4.0-5.4) 10^6/ul Hgb 10.8 L (12.0-16.0) g/dl Hct 32 L (35-47) % MCV 96 (80-97) fL MCH 32 H (27-31) pg MCHC 34 (31-36) g/dl RDW 16 H (10.5-15) % Plt Count 163 (150-450) 10^3/ul MPV 8 (7.4-10.4) um3 Neut % (Auto) 56.1 (38-83) % Lymph % (Auto) 35.0 (25-47) % Sebastian % (Auto) 7.1 H (0-7) % Eos % (Auto) 1.3 (0-6) % Baso % (Auto) 0.5 (0-2) % Absolute Neuts (auto) 5.0 (1.5-7.7) 10^3/ul Absolute Lymphs (auto) 3.1 (1.0-4.8) 10^3/ul Absolute Monos (auto) 0.6 (0-0.8) 10^3/ul Absolute Eos (auto) 0.1 (0-0.6) 10^3/ul Absolute Basos (auto) 0 (0-0.2) 10^3/ul Absolute Nucleated RBC 0 10^3/ul Nucleated RBC % 0.1 Sodium 141 (133-145) mmol/L Potassium 4.3 (3.5-5.0) mmol/L Chloride 109 (101-111) mmol/L Carbon Dioxide 28 (22-32) mmol/L Anion Gap 4 (2-11) mmol/L BUN 17 (6-24) mg/dL Creatinine 0.90 (0.51-0.95) mg/dL Est GFR ( Amer) 76.5 (>60) Est GFR (Non-Af Amer) 59.5 (>60) BUN/Creatinine Ratio 18.9 (8-20) Glucose 115 H (70-100) mg/dL Lactic Acid (0.5-2.0) mmol/L Calcium 9.2 (8.6-10.3) mg/dL Total Bilirubin 0.30 (0.2-1.0) mg/dL AST 15 (13-39) U/L ALT 5 L (7-52) U/L Alkaline Phosphatase 43 (34-104) U/L Ammonia (16-53) mol/L Troponin I 0.00 (<0.04) ng/mL Total Protein 6.6 (6.4-8.9) g/dL Albumin 3.4 (3.2-5.2) g/dL Globulin 3.2 (2-4) g/dL Albumin/Globulin Ratio 1.1 (1-3) Vitamin B12 457 (180-914) pg/mL TSH 0.03 L (0.34-5.60) mcIU/mL Free T4 1.41 H (0.61-1.12) ng/dL Thyroxine (T4) 9.68 (6.09-12.23) mcg/mL Free T3 2.80 (2.5-3.9) pg/mL Total T3 0.71 L (0.87-1.78) ng/mL Urine Color Yellow Urine Appearance Cloudy Urine pH 7.0 (5-9) Ur Specific [place] 1.006 L (1.010-1.030) Urine Protein Negative (Negative) Urine Ketones Negative (Negative) Urine Blood Negative (Negative) Urine Nitrate Negative (Negative) Urine Bilirubin Negative (Negative) Urine Urobilinogen Negative (Negative) Ur Leukocyte Esterase Negative (Negative) Urine Glucose Negative (Negative) 05/05/17 05/05/17 05/05/17 Range/Units 15:59 19:37 19:37 WBC 8.6 (3.5-10.8) 10^3/ul RBC 3.34 L (4.0-5.4) 10^6/ul Hgb 10.7 L (12.0-16.0) g/dl Hct 32 L (35-47) % MCV 96 (80-97) fL MCH 32 H (27-31) pg MCHC 33 (31-36) g/dl RDW 15 (10.5-15) % Plt Count 169 (150-450) 10^3/ul MPV 8 (7.4-10.4) um3 Neut % (Auto) 45.7 (38-83) % Lymph % (Auto) 46.3 (25-47) % Sebastian % (Auto) 6.1 (0-7) % Eos % (Auto) 1.2 (0-6) % Baso % (Auto) 0.7 (0-2) % Absolute Neuts (auto) 3.9 (1.5-7.7) 10^3/ul Absolute Lymphs (auto) 4.0 (1.0-4.8) 10^3/ul Absolute Monos (auto) 0.5 (0-0.8) 10^3/ul Absolute Eos (auto) 0.1 (0-0.6) 10^3/ul Absolute Basos (auto) 0.1 (0-0.2) 10^3/ul Absolute Nucleated RBC 0 10^3/ul Nucleated RBC % 0 Sodium (133-145) mmol/L Potassium (3.5-5.0) mmol/L Chloride (101-111) mmol/L Carbon Dioxide (22-32) mmol/L Anion Gap (2-11) mmol/L BUN 17 (6-24) mg/dL Creatinine (0.51-0.95) mg/dL Est GFR ( Amer) (>60) Est GFR (Non-Af Amer) (>60) BUN/Creatinine Ratio (8-20) Glucose (70-100) mg/dL Lactic Acid 1.7 (0.5-2.0) mmol/L Calcium (8.6-10.3) mg/dL Total Bilirubin (0.2-1.0) mg/dL AST (13-39) U/L ALT (7-52) U/L Alkaline Phosphatase (34-104) U/L Ammonia (16-53) mol/L Troponin I (<0.04) ng/mL Total Protein (6.4-8.9) g/dL Albumin (3.2-5.2) g/dL Globulin (2-4) g/dL Albumin/Globulin Ratio (1-3) Vitamin B12 (180-914) pg/mL TSH (0.34-5.60) mcIU/mL Free T4 (0.61-1.12) ng/dL Thyroxine (T4) (6.09-12.23) mcg/mL Free T3 (2.5-3.9) pg/mL Total T3 (0.87-1.78) ng/mL Urine Color Urine Appearance Urine pH (5-9) Ur Specific [place] (1.010-1.030) Urine Protein (Negative) Urine Ketones (Negative) Urine Blood (Negative) Urine Nitrate (Negative) Urine Bilirubin (Negative) Urine Urobilinogen (Negative) Ur Leukocyte Esterase (Negative) Urine Glucose (Negative) Diagnostic Imaging: MRI BRAIN Patient Name: GAMA MANZO Medical Record#: [id number] Ordering Physician: Alissa Aldridge MD Acct.#: [id number] : 1930 Age: 87 Sex: F Location: [address] [place] [address] MEDICAL Exam Date: 05/06/17 1601 ADM Status: ADM Nay Order Information: MRI BRAIN W/O Accession Number: [id number] CPT: 84804 Indication: Dementia. Mental status change. Comparison: CT brain of one day prior. Technique: [employer] 1.5 Tiffanie [id number] with GEM suite. MRI brain without contrast. Report: Diffusion series is negative for acute or subacute ischemia. Susceptibility series is negative for stigmata of hemosiderin deposition to indicate previous hemorrhage. Moderate prominence of the cerebral sulci reflecting volume loss. Unremarkable ventricles and basal cisterns. Increased T2 signal in the periventricular and subcortical white matter without mass effect most consistent with chronic small vessel ischemic disease. No intra or extra-axial fluid collection evident. Unremarkable orbital contents. Preserved major intracranial flow-voids. Indolent thickening of the inner table of the frontal bone. No suspicious calvarial or skull base fractures evident. Clear paranasal sinuses and mastoid air spaces. Unremarkable scalp. IMPRESSION: Involutional change and stigmata of chronic small vessel ischemic disease. No evidence for acute or subacute ischemia or other acute intracranial process. <Electronically signed by Carroll Adame MD in OV> 05/06/172024 Dictated By: Carroll Adame MD Dictated Date/Time: 05/06/172024 Transcribed Date/Time: 05/06/172020 Copy to: HEAD CT Patient Name: GAMA MANZO Medical Record#: [id number] Ordering Physician: Adrian Barr MD Acct.#: [id number] : 1930 Age: 87 Sex: F Location: EMERGENCY DEPARTMENT Exam Date: 05/05/171721 ADM Status: REG ER Order Information: CT BRAIN WO Accession Number: [id number] CPT: 27860 Indication: Altered mental status. Comparison: No prior exams available on the [facility] PACS for comparison. Technique: Noncontrast CT vertex of skull through foramen magnum. Report: Moderately severe prominence of the cerebral sulci and moderate prominence of the cerebellar fissures reflecting atrophy. Unremarkable ventricles and basal cisterns. 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 Negative for [place] matter white matter obscuration, intra or extra-axial hemorrhage, or mass effect. Unremarkable partially visualized orbital contents. No fracture or suspicious calvarial or skull base lesion evident. Indolent thickening of the inner table of the frontal bone noted. Clear visualized paranasal sinuses and mastoid air spaces. Unremarkable scalp. IMPRESSION: 1. No acute intracranial process evident. 2. Involutional change and stigmata of chronic small vessel ischemic disease. <Electronically signed by Carroll Adame MD in OV> 05/05/171912 Dictated By: Carroll Adame MD Dictated Date/Time: 05/05/171912 Transcribed Date/Time: 05/05/171908 Copy to: Assess/Plan/Problems-Billing Assessment: This is a very confused 87 year old female with history of dementia with more severe features at home and since admission. - Patient Problems (1) Altered mental status Comment: - Baseline dementia. Suspect worsening dementia. - Labs unremarkable - CT head negative for any acute pathology - MRI with no changes - Remeron increased, seroquel PRN, would hold seroquel for sedation - Appreciate neuro consult - Behavior appears to be more stable today (2) Hypothyroid Comment: - TSH 0.03, continue to hold synthroid - overmedication with synthroid may have been contributing factor (3) B12 deficiency Comment: continue B12 supplement (4) Full code status Status and Disposition: Remain inpatient for symptom management, has bed in [place] assisted living for Friday.
[2017-05-11] MEDS: Mirtazapine TAB* 15 MG PO SCH (21:12)
[2017-05-12] MEDS: Heparin VIAL(*) 5000 UNITS/ML VIAL (FIVE THOUSAND) SUBCUT SCH (06:14)
[2017-05-12] MEDS ORDERED: Cholecalciferol TAB* 1000 UNITS PO SCH (09:00)
--- NOTE | 2017-05-12 09:23 | DS ---
DISCHARGE SUMMARY: DATE OF ADMISSION: 05/05/17 DATE OF DISCHARGE: 05/12/17 PROVIDER: Femi Johnson NP ATTENDING PHYSICIAN: Dr. Tirado* (report dictated by Femi Johnson NP). PRIMARY CARE PROVIDER: Per son currently working on getting his mother a new primary care provider in the [place] area. Discharged to [facility] in [place], [place]. PRIMARY DIAGNOSES: 1. Delirium, suspect secondary to worsening dementia. 2. Hyperthyroid. The patient has a history of hypothyroidism, but was noted to have a low TSH of 0.03 on admission and her Synthroid was held. SECONDARY DIAGNOSES: 1. B12 deficiency. 2. History of breast cancer. 3. Depression. DISCHARGE MEDICATIONS: 1. Vitamin B12 500 mcg p.o. q.a.m. 2. Vitamin D 2000 units p.o. daily. 3. Seroquel 25 mg p.o. at bedtime p.r.n. (new medication). 4. Mirtazapine 30 mg p.o. at bedtime (dose increased from 15 mg). 5. mg p.o. q.4 hours p.r.n. 6. Celexa 10 mg p.o. q.a.m. Medications discontinued: 1. Exelon patch. 2. Lexapro 5 mg p.o. daily. HISTORY OF PRESENT ILLNESS AND HOSPITAL COURSE: Please see history and physical by Nii Muhammad NP, for full admission details, but in summary, this is an 87-year- old female with a past medical history of dementia, hypothyroidism and breast cancer, who presented to the emergency department on 05/05/17 with altered mental status. The patient was living with her son, Leonor, who reported she had been having hallucinations and was very paranoid and not acting at her baseline and she was brought to the emergency department for further evaluation. She was also noted to have aggressive behaviors particularly at nighttime. In the emergency department, she was found to have a suppressed TSH of 0.03 and her Synthroid was discontinued. Her labs had been fairly unremarkable with a noted negative urinalysis. The patient underwent an MRI of her brain, which showed no acute pathology in which the read states "involutional change and stigmata of chronic small vessel ischemic disease. No evidence for acute or subacute ischemia or other acute intracranial process." She was seen by neurologist, Dr. Aldridge, whose impression was that it is possible in this relative state of hyperthyroidism, it could contribute to delirium on top of her dementia, and suspected this was delirium. Due to some fluent aphasia, she did order the MRI, which was a negative read as stated above. In discussion with her son, Lenoor, he confirms that his mother is back to her baseline. She is very confused at baseline, but pleasantly confused over the past several days with aggressive behaviors and hallucinations have resolved with increasing her Remeron to 30 mg p.o. at bedtime and adding Seroquel 25 mg p.o. at bedtime p.r.n. There has been no identified infectious process. Suspect this is secondary to delirium with advanced dementia. The plan will be to transfer the patient to an assisted living facility at discharge. The son is currently setting his mother up with a new primary care provider in the [place] area. He and his are very involved in her care and have continued to be a good support for the patient. However, it is no longer feasible to have her living in their home due to her advanced dementia, she requires an increased level of care. DISCHARGE PLAN: 1. Discharged to [facility] in [place], [place], tomorrow, Friday , 05/12/17. 2. I discussed with the son to follow up with primary care provider within 7 to 10 days. 3. Follow up TSH in 1 week. 4. Stable for discharge tomorrow. TIME SPENT: Approximately 60 minutes was spent on this discharge. FEMI JOHNSON, BOUCHRA [id number]/CPS #: [id number] LEVI
[2017-05-12] MEDS: Cyanocobalamin TAB* 500 MCG PO SCH (10:03)
[2017-05-12] MEDS: Citalopram TAB* 10 MG PO SCH (10:03)
== END 2017-05-12 13:15 | DRG 884 ==
LOC: ED 14:22 → INTOOBSV 19:53 → OBSVTOIN 19:53 → UNDOADMOB 19:53 → MED 19:53 → OBSVTOIN 05-07 11:00 → MED 05-07 11:00
PROVIDERS: ADMIT Internal Medicine; ATTEND Internal Medicine
DX: F03.90 Unspecified dementia, unspecified severity, without behavioral disturbance, psychotic disturbance, mood disturbance, and anxiety (principal); F05 Delirium due to known physiological condition; R45.1 Restlessness and agitation; F22 Delusional disorders; R47.01 Aphasia; E05.90 Thyrotoxicosis, unspecified without thyrotoxic crisis or storm; F32.9 Major depressive disorder, single episode, unspecified; E53.8 Deficiency of other specified B group vitamins; Z85.3 Personal history of malignant neoplasm of breast; Z90.49 Acquired absence of other specified parts of digestive tract; Z82.49 Family history of ischemic heart disease and other diseases of the circulatory system; Z87.891 Personal history of nicotine dependence; Z87.440 Personal history of urinary (tract) infections
CPT/HCPCS: 36415; 70450; 70551; 71045; 80048; 80053; 81003; 82140; 82306; 82607; 83605; 84436; 84439; 84443; 84479; 84481; 84484; 84520; 85025; 93005; 94760; 99285; A9270-GY; G0378; J1630; J1644